=== PATIENT | female | born 1950 | race Caucasian/White ===

== ENCOUNTER 2020-05-27 08:08 | Outpatient (CLI) | payer MEDICARE, OTHER, SELFPAY ==
--- NOTE | 2020-05-27 08:15 | XRR_ITS ---
PROCEDURE INFORMATION: Exam: XR Abdomen, 1 View Exam date and time: 05/27/2020 8:25 AM Age: 70 years old Clinical indication: Condition or disease; Kidney or ureter condition; Calculus (stone) in kidney; Prior surgery; Surgery type: Ileostomy; Additional info: Renal stone TECHNIQUE: Imaging protocol: XR of the abdomen. Views: Frontal supine view of the abdomen. 1 View. COMPARISON: CR XR KUB [id number] 05/27/2019 8:28 AM FINDINGS: Gastrointestinal tract: No significant bowel dilatation. Intraperitoneal space: Punctate pelvic calcifications, presumably vascular in etiology. If urolithiasis is of clinical concern, CT may be of benefit for further evaluation. Organs: Bowel gas partially obscures the renal fossa. Bones/joints: Femoral head sclerosis, consistent with avascular necrosis. Degenerative change. XR/XR KUB [id number] IMPRESSION: Punctate pelvic calcifications, presumably vascular in etiology. If urolithiasis is of clinical concern, CT may be of benefit for further evaluation.
== END 2020-05-27 08:09 | disposition home or self-care (01) ==
PROVIDERS: PCP Registered Nurse; Visit Provider Urology
DX: N20.0 Calculus of kidney (principal)
CPT/HCPCS: 74018; 81003

== ENCOUNTER 2021-05-27 08:22 | Outpatient (CLI) | payer MEDICARE, OTHER, SELFPAY ==
--- NOTE | 2021-05-27 08:15 | XR_ITS ---
WS: [id number] ABDOMEN: SUPINE FILM HISTORY: renal calculus COMPARISON: 05/27/2020 Normal bowel gas pattern. No soft tissue abnormalities. There are several small calcifications within the pelvis which are probably phleboliths. No change in position. Right kidney: No renal or ureteral stone identified. Left kidney: Possible 4 mm calcification overlying the lower pole LEFT kidney. There is an additional calcification in the RIGHT upper quadrant which is probably related to a gallstone as seen on a prio r CT from 2017. XR/XR KUB [id number] IMPRESSION: 1. Possible 4 mm calcification overlying lower pole LEFT kidney. Vaguely visua lized. 2. Well-circumscribed calcification RIGHT upper abdomen is probably a gallston e.
== END 2021-05-27 08:23 | disposition home or self-care (01) ==
LOC: RAD 08:26
PROVIDERS: PCP Registered Nurse; Visit Provider Urology
DX: N20.0 Calculus of kidney (principal)
CPT/HCPCS: 74018

== ENCOUNTER 2021-11-04 09:13 | Outpatient (CLI) | payer MEDICARE, OTHER, SELFPAY ==
--- NOTE | 2021-11-04 09:15 | XR_ITS ---
WS: [id number] KUB, AP view, 11/04/2021 Clinical Data: RENAL CALCULUS, LEFT Comparison: KUB, 05/27/2021. Findings: No abnormal intraabdominal masses or calcifications are seen. There is no dilatated small bowel or ev idence of obstruction. 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 The abdomen is gasless. XR/XR KUB [id number] Impression: Negative KUB.
== END 2021-11-04 09:14 | disposition home or self-care (01) ==
LOC: RAD 09:16
PROVIDERS: PCP Registered Nurse; Visit Provider Urology
DX: N20.0 Calculus of kidney (principal); R10.9 Unspecified abdominal pain
CPT/HCPCS: 74018; 81003; 99213

== ENCOUNTER 2021-11-12 10:43 | Outpatient (CLI) | payer MEDICARE, OTHER, SELFPAY ==
--- NOTE | 2021-11-12 11:00 | CT_ITS ---
WS: [id number] Exam: CT abdomen pelvis wo con [id number] Date/Time of Exam: 11/12/2021 10:55 AM Reason For Exam: HEMATURIA DLP: 1029.[address] scans at [facility] use at least one of these dose optimization techniques: automated e xposure control; mA and/or kV adjustment per patient size (includes targeted exams where dose is matc hed to clinical indication); or iterative reconstruction. Comparison 02/09/2015. Lower lung zones are clear. Chronic changes noted. There are 2 small stable appearing cysts in the ri ght lobe of the liver. The largest is about 1.5 cm at greatest diameter. There are stones in the gall bladder. No sign of acute cholecystitis. The stomach, spleen and pancreas appear normal. Stable appea ring bilobulated nodule in the left adrenal gland measures about 2.8 cm at greatest diameter. Subcent imeter nodule in the right adrenal gland. 3 mm nonobstructing stone in the left kidney. The right kid jeff is unremarkable. No sign of renal obstruction. The abdominal aorta is normal in caliber. No lymph adenopathy. No free air. Small bowel loops are not dilated. Surgical absence of the colon. Right lowe r quadrant ileostomy noted. There is peristomal herniation of the omentum. No mass or adenopathy in t he pelvis. Intact urinary bladder. Hysterectomy. Tiny left paracentral ventral hernia containing fat. Tiny fat containing umbilical hernia. No destructive bone lesions. CT/CT abdomen pelvis con [id number] IMPRESSION: 1. 3 mm nonobstructing stone in the left kidney. No renal obstruction. 2. Cholelithiasis no sign of acute cholecystitis. 3. Small hepatic cysts. Bilateral adrenal nodules which are stable. 4. Status post colectomy. Additional minor nonacute findings. 5. No sign of abdominal mass, lymphadenopathy or acute process.
== END 2021-11-12 10:44 | disposition home or self-care (01) ==
PROVIDERS: PCP Registered Nurse; Visit Provider Urology
DX: R31.9 Hematuria, unspecified (principal); N20.0 Calculus of kidney; K80.20 Calculus of gallbladder without cholecystitis without obstruction; K76.89 Other specified diseases of liver; Z90.49 Acquired absence of other specified parts of digestive tract
CPT/HCPCS: 74176; 81003; 99213

== ENCOUNTER 2021-12-27 07:02 | Outpatient (CLI) | payer MEDICARE, OTHER, SELFPAY ==
--- NOTE | 2021-12-27 07:21 | MR_ITS ---
WS: [email or web address] INDICATION: Abdominal and pelvic pain. TECHNIQUE: Coronal T1 STIR axial T2 fat sat axial T1 and sagittal T2 fat sat FINDINGS: Partially visualized colectomy. RIGHT lower quadrant ileostomy with peristomal herniation i s unchanged since recent CT. No pelvic lymphadenopathy. No inguinal lymphadenopathy. Bladder appears normal. Prior hysterectomy. Normal bone marrow signal in the pelvis and sacrum. No insufficiency frac tures. No evidence of soft tissue mass or lesion. Serpiginous signal abnormality with edema involving the femoral heads bilaterally compatible with emy scular necrosis. Recommend correlation for bilateral hip pain. This is unchanged from the recent CT a nd CT 2017 MR/MR pelvis wo con* [id number] IMPRESSION: 1. Avascular necrosis bilateral femoral heads with mild edema LEFT greater leandra n RIGHT. No significant subchondral collapse. Recommend correlation for bilater al hip pain. This appears similar to 2017 CT abdomen pelvis. 2. Otherwise normal bone marrow signal in the pelvis and sacrum. 3. No pelvic lymphadenopathy. 4. Prior hysterectomy. 5. RIGHT lower quadrant ileostomy with partially visualized colectomy. 6. No other significant findings.
--- NOTE | 2021-12-27 07:21 | MR_ITS ---
WS: [email or web address] INDICATION: Abdominal and pelvic pain TECHNIQUE: MRI of the abdomen without gadolinium enhancement. Axial T1 fat sat coronal 3-D T1, axial 3-D fat sat, coronal T1 breath hold, axial T1 breath-hold, coronal T2, and attaches imaging, axial T2 fat sat, axial single shot FSE, coronal single shot. FINDINGS: Simple cysts in the right lobe of the liver are unchanged. The largest measures 2.0cm. Chol elithiasis. No gallbladder wall thickening or pericholecystic fluid. Normal pancreas. Normal common b ile duct. Pancreatic duct is normal. Bilateral adrenal nodules with signal characteristics compatible with adrenal adenomas largest LEFT adrenal gland measuring 2.0 cm. No hydronephrosis in either kidney. Normal caliber upper abdominal aorta. No upper abdominal lymphade nopathy visualized. RIGHT lower quadrant ileostomy. Prior colectomy. MR/MR abdomen wo con [id number] IMPRESSION: 1. Cholelithiasis. No evidence of acute cholecystitis. 2. Normal common bile duct. 3. Incidental small hepatic cysts. 4. Small bilateral adrenal adenoma nodules compatible with adenomas. 5. Prior postoperative changes colectomy.
== END 2021-12-27 07:03 | disposition home or self-care (01) ==
LOC: RAD 07:03
PROVIDERS: PCP Registered Nurse; Visit Provider Nurse Practitioner Family
DX: K80.20 Calculus of gallbladder without cholecystitis without obstruction (principal); K76.89 Other specified diseases of liver; D35.02 Benign neoplasm of left adrenal gland; D35.01 Benign neoplasm of right adrenal gland; R10.9 Unspecified abdominal pain; R10.2 Pelvic and perineal pain; Z93.2 Ileostomy status; Z90.710 Acquired absence of both cervix and uterus
CPT/HCPCS: 72195; 74181

== ENCOUNTER 2022-01-17 08:35 | Outpatient (CLI) | payer MEDICARE, OTHER, SELFPAY ==
--- NOTE | 2022-01-17 08:43 | MM_ITS ---
WS: [id number] SCREENING DIGITAL BREAST TOMOSYNTHESIS MAMMOGRAM WITH CAD HISTORY: SCREENING COMPARISON: 01/13/2021 and 01/10/2020 Bilateral CC and MLO with tomosynthesis views submitted. Synthetic mammography reviewed. Computer aid ed detection analyzed. Breast composition: There are scattered areas of fibroglandular density. No suspicious masses, microc alcifications or architectural distortion. Benign calcifications within each breast. MM/[place] [id number] IMPRESSION: BI-RADS: 2-Benign FOLLOW UP: 1 Year Follow-up
== END 2022-01-17 08:36 | disposition home or self-care (01) ==
LOC: RAD 08:36
PROVIDERS: PCP Registered Nurse; Visit Provider Registered Nurse
DX: Z12.31 Encounter for screening mammogram for malignant neoplasm of breast (principal)
CPT/HCPCS: 77063; 77067

== ENCOUNTER → 2022-04-29 11:08 | Outpatient (BNVA) | payer MEDICARE, OTHER, SELFPAY | PROVIDERS: PCP Registered Nurse; Visit Provider Internal Medicine Cardiovascular Disease | DX: I12.9 Hypertensive chronic kidney disease with stage 1 through stage 4 chronic kidney disease, or unspecified chronic kidney disease (principal); N18.9 Chronic kidney disease, unspecified; R00.2 Palpitations; E78.49 Other hyperlipidemia; I45.10 Unspecified right bundle-branch block | CPT/HCPCS: 99214 ==

== ENCOUNTER 2022-05-26 08:26 | Outpatient (CLI) | payer MEDICARE, OTHER, SELFPAY ==
--- NOTE | 2022-05-26 08:49 | XR_ITS ---
WS: [email or web address] EXAMINATION: XR KUB [id number] REASON FOR EXAM: Renal Calculus COMPARISON: 11/04/2021 ORDER DATE: 05/26/2022 8:50 AM FINDINGS: There is a nonspecific colonic gas pattern with scattered fecal content and gas. There is no sign of significant small bowel dilation. There is a 1 cm eggshell calcification in the right upper quadrant unchanged from prior at which time it was outside the renal outline, possible gallstone or digna ranjan cification. Numerous small calcifications are scattered about the pelvic cavity most of which have ch aracteristics of phleboliths with some too small to characterize. Osteoarthritis in each hip demonstr ates slightly greater on the left. XR/XR KUB [id number] IMPRESSION: No acute change and no interval change previous
== END 2022-05-26 08:27 | disposition home or self-care (01) ==
LOC: RAD 08:31
PROVIDERS: PCP Registered Nurse; Visit Provider Urology
DX: N20.0 Calculus of kidney (principal); N39.46 Mixed incontinence
CPT/HCPCS: 51798; 74018; 99213

== ENCOUNTER 2022-12-09 13:31 | Emergency (ER) | payer MEDICARE, OTHER, SELFPAY ==
[2022-12-09 13:44] VITALS: BP 143/89; PULSE 103; RESP 18; TEMP 36.6; O2SAT 98; BMI 27.6
--- NOTE | 2022-12-09 13:54 | XRR_ITS ---
PROCEDURE INFORMATION: Exam: XR Right Shoulder Exam date and time: 12/09/2022 2:14 PM Age: 72 years old Clinical indication: Pain; Shoulder; Right; Additional info: Fall with pain TECHNIQUE: Imaging protocol: Radiologic exam of the right shoulder. Views: 2 or more views. COMPARISON: CR XR chest 1V [id number] 08/01/2016 9:34 AM FINDINGS: Bones/joints: No acute fracture or dislocation is seen. Shoulder alignment is normal. Bones appear osteopenic. There are mild degenerative changes the acromioclavicular joint. No findings calcific tendinitis. Soft tissues: Normal. XR/XR shoulder RT min 2V* [id number] IMPRESSION: No acute fracture dislocation.
--- NOTE | 2022-12-09 13:54 | XRR_ITS ---
PROCEDURE INFORMATION: Exam: XR Right Knee Exam date and time: 12/09/2022 2:14 PM Age: 72 years old Clinical indication: Pain; Knee; Right; Additional info: Fall with pain TECHNIQUE: Imaging protocol: Radiologic exam of the right knee. Views: 3 views. COMPARISON: No relevant prior studies available. FINDINGS: Bones/joints: No acute fracture or dislocation is seen. There is a fairly well-defined approximally 7 x 3 cm sclerotic appearing intramedullary lesion in the distal femoral diaphysis which has a nonaggressive appearance. Primary considerations would be enchondroma versus medullary bone infarct. No knee effusion. Soft tissues: Normal. XR/XR knee RT 3V* [id number] IMPRESSION: 1. No acute fracture or dislocation. 2. 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 Metastatic disease would have be considered, if there is a known primary neoplasm.
--- NOTE | 2022-12-09 13:54 | XRR_ITS ---
PROCEDURE INFORMATION: Exam: XR Left Forearm Exam date and time: 12/09/2022 2:14 PM Age: 72 years old Clinical indication: Pain; Lower or forearm; Left; Additional info: Fall with pain TECHNIQUE: Imaging protocol: Radiologic exam of the left forearm. Views: 2 views. COMPARISON: No relevant prior studies available. FINDINGS: Bones/joints: An acute olecranon process fracture is better seen elbow radiographs. The distal ulna and radius are intact. No acute fracture is seen at the wrist. Soft tissues: Soft tissue swelling overlies the fracture. XR/XR forearm LT 2V [id number] IMPRESSION: Acute olecranon process fracture is better seen elbow radiographs.
--- NOTE | 2022-12-09 13:54 | XRR_ITS ---
PROCEDURE INFORMATION: Exam: XR Left Humerus Exam date and time: 12/09/2022 2:14 PM Age: 72 years old Clinical indication: Pain; Upper arm; Left; Additional info: Fall with pain TECHNIQUE: Imaging protocol: Radiologic exam of the left humerus. Views: 2 or more views. COMPARISON: CR XR chest 1V [id number] 08/01/2016 9:34 AM FINDINGS: Bones/joints: No acute humeral fracture is visualized. No dislocation. There is an incompletely visualized olecranon fracture which appears nondisplaced. No destructive osseous lesions identified. No periosteal reaction. Soft tissues: Normal. XR/[place] [id number] IMPRESSION: 1. No humeral fracture or dislocation identified. 2. Partially visualized olecranon fracture.
--- NOTE | 2022-12-09 13:55 | W.ED.FALL ---
Documented by User: Emily Bonner PA-C 12/09/22 16:19 HPI - Fall General: Chief Complaint: Fall Stated Complaint: fall, left arm, right knee pain Time Seen by Provider: 12/09/22 13:47 Source: patient Mode of arrival: ambulatory Limitations: no limitations History of Present Illness: 72-year-old female presents to the ER today for left shoulder, left elbow, left wrist, right shoulder, and right knee pain after a fall just prior to arrival. Patient reports she was walking down her hallway at home and the dog was laying in the middle of it. Patient reports it is dark and she did not see the dog and she tripped over the dog, falling with her arms out in front of her. She reports she hit her right knee and right side. Her daughter heard her fall and came running out. There was no loss of consciousness as when daughter came out of the room patient was awake and conscious. Patient reports severe pain in her left elbow and inability to move the left elbow, significant pain with movement of the left wrist, and left shoulder. Patient denies any prior injuries to these areas. She also reports pain with posterior flexion of the right shoulder. Patient also has right knee pain and reports it is worse with weightbearing. She has not take anything for pain at this time. Review of Systems General: Reports: 10 or more systems reviewed and unremarkable except in HPI and below PFSH ED PFSH: Medical History CKD (chronic kidney disease) Familial polyposis of colon Hematuria Hyperlipidemia due to dietary fat intake Mixed stress and urge urinary incontinence Osteoporosis Palpitation RBBB Renal calculus, left Surgical History S/P foot surgery S/P hysterectomy S/P ileostomy 12 surgeries S/P oophorectomy Family History Daughter , at 28 Colon cancer Sister , at 32 Colon cancer Mother , at age 46 Colon cancer Father , at age 59 Leukemia Son , Grandson at age 31 Overdose Other CAD (coronary artery disease) Cancer Familial polyposis Social History Smoking and tobacco status: never smoked Alcohol intake: never Adopted: No Caregiver/support person: No Lives independently: No Marital status: Current occupational status: retired Physical Exam Const: COMMON NORMALS: average body habitus, patient oriented x3, no limitations, healthy appearing, alert and well nourished Eye: COMMON NORMALS: conjunctivae normal CONJUNCTIVA: Yes conjunctivae normal Neck/C-Spine: COMMON NORMALS: full ROM and no lymphadenopathy Resp: COMMON NORMALS: normal respiratory effort and No retractions EFFORT & INSPECTION: Yes able to speak in complete sentences Cardio: COMMON NORMALS: regular rate, regular rhythm and No murmurs present (Cardio) RATE: regular rate RHYTHM: regular rhythm GI: COMMON NORMALS: Normal to inspection, nondistended, normoactive bowel sounds present, Soft to palpation and non-tender PALPATION: Yes Soft to palpation Extremity: NARRATIVE EXTREMITY EXAM: Patient has significant tenderness to palpation of the left shoulder, left elbow, and left wrist with pain with any movements of these areas. No obvious swelling or deformities are noted. Patient also has pain with posterior flexion of the right shoulder but is able to abduct the shoulder normally. Patient also has tenderness of the right patella with an abrasion noted however no obvious swelling or deformities. Neuro: COMMON NORMALS: patient oriented x3 SENSORIUM/ORIENTATION: Yes alert Psych: COMMON NORMALS: mental status grossly normal, Normal thought process present and cooperative THOUGHT PROCESS: Normal thought process present Skin: NARRATIVE SKIN EXAM: No obvious bruising noted however patient does have an abrasion to the right knee. Course ED course: Patient presents to the ER after a fall this morning. Patient tripped over her dog in the dark and landed on her outstretched arms forward. No loss of consciousness reported. We will get imaging at this time of several areas where patient is experiencing pain. Consultations: Consultation #1: Spoke with Dr. Gee regarding patient's fracture. She wants her in a posterior splint at 45 to 60 degrees and to follow-up next week. Time: 15:57 Vital Signs: Vital signs: Vital Signs Temperature 97.9 F 12/09/22 13:44 Pulse Rate 103 H 12/09/22 13:44 Respiratory Rate 18 12/09/22 13:44 Blood Pressure 143/89 12/09/22 13:44 Pulse Oximetry 98 12/09/22 13:44 Oxygen Delivery Me thod Room Air 12/09/22 13:44 MDM - Fall Medical Decision Making All imaging was negative other than the left elbow fracture. Patient does have an acute intra-articular olecranon fracture that is nondisplaced. I spoke with Dr. Gee who recommended patient be splinted at 45 to 90 degrees with a posterior arm splint. Follow-up next week at clinic with her. Patient will be sent home with pain medication and advised to rest and elevate the arm and apply ice to reduce swelling. Everything else however appeared normal. Patient does have a right knee abrasion. Recommended ice and elevation. Return to the ER with any new or worsening symptoms. Patient verbalized understanding and was in agreement with the treatment plan. Lab Data Radiology Impressions Forearm X-Ray 12/09/22 13:54 IMPRESSION: Acute olecranon process fracture is better seen elbow radiographs. Humerus X-Ray 12/09/22 13:54 IMPRESSION: 1. No humeral fracture or dislocation identified. 2. Partially visualized olecranon fracture. Knee X-Ray 12/09/22 13:54 IMPRESSION: 1. No acute fracture or dislocation. 2. 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 Metastatic disease would have be considered, if there is a known primary neoplasm. Shoulder X-Ray 12/09/22 13:54 IMPRESSION: No acute fracture dislocation. Elbow X-Ray 12/09/22 14:43 IMPRESSION: 1. Acute intra-articular olecranon fracture, nondisplaced. 2. Hemarthrosis. Critical Care Time Critical Care Time: Critical Care Time: No Discharge Plan Discharge Patient Disposition: Home Clinical Impression: Fracture of olecranon process of left ulna Qualifiers: Encounter type: initial encounter Fracture type: closed Qualified Code(s): S52.022A - Displaced fracture of olecranon process without intraarticular extension of left ulna, initial encounter for closed fracture Condition: Stable Prescriptions: New hydrocodone-acetaminophen 5-325 mg tablet 1 tab PO Q6H PRN (Reason: pain) Qty: 20 0RF No Action levothyroxine 25 mcg capsule 25 mcg PO DAILY ondansetron HCl [Zofran] 4 mg tablet 4 mg PO Q8H PRN sertraline [Zoloft] 50 mg tablet 50 mg PO DAILY vitamin B complex [B Complex-Vitamin B12] Tablet 1 tab PO DAILY alprazolam [Xanax] 0.5 mg tablet 0.5 mg PO DAILY cholecalciferol (vitamin D3) 50 mcg (2,000 unit) capsule 2,000 unit PO DAILY guaifenesin [Mucinex] 600 mg tablet extended release 12hr 600 mg PO Q12H PRN simvastatin 20 mg tablet 20 mg PO DAILY fluticasone propionate [Flonase Allergy Relief] 50 mcg/actuation spray,suspension 1 spray INTRANASAL DAILY PRN Rx Instructions: administer into each nostril famotidine 20 mg tablet 20 mg PO DAILY ketoconazole 2 % shampoo 1 applic topical .2x weekly Qty: 120 6RF Rx Instructions: Lather into scalp 2-3 times weekly. Allow to sit on scalp for 5 minutes before rinsing. biotin 10,000 mcg capsule PO oxybutynin chloride 5 mg tablet extended release 24 hr See Rx Instructions .ROUTE .COMPLEX Qty: 90 3RF Dose Instruction: TAKE 1 TABLET BY MOUTH DAILY. Rx Instructions: TAKE 1 TABLET BY MOUTH DAILY. Discharge Orders: Discharge ED (Routine); Ordered 12/09/22 Ordered By: Emily Bonner Referrals: Nanci Gee MD [Physician] - (Olecranon fracture) Heike Gutierrez FNP [Primary Care Provider] - Discharge Diet: Usual diet Discharge Activity: Limit activity as instructed Patient Instructions: Opioid Safety, Pain Management Activity Restrictions/Additional Instructions: Pain medications as prescribed. Splint care as discussed. Follow-up with Dr. Gee next week. Keep arm elevated and ice on it to decrease swelling. Return to the ER with any new or worsening symptoms. Coding Level of Care Code ED Lithopress Operator for Chg Fwd Documented by User: Chip Almodovar DO 12/09/22 16:54 HPI - Fall General: Chief Complaint: Fall Stated Complaint: fall, left arm, right knee pain Time Seen by Provider: 12/09/22 13:47 PFSH ED PFSH: Medical History CKD (chronic kidney disease) Familial polyposis of colon Hematuria Hyperlipidemia due to dietary fat intake Mixed stress and urge urinary incontinence Osteoporosis Palpitation RBBB Renal calculus, left Surgical History S/P foot surgery S/P hysterectomy S/P ileostomy 12 surgeries S/P oophorectomy Family History Daughter , at 28 Colon cancer Sister , at 32 Colon cancer Mother , at age 46 Colon cancer Father , at age 59 Leukemia Son , Grandson at age 31 Overdose Other CAD (coronary artery disease) Cancer Familial polyposis Social History Smoking and tobacco status: never smoked Alcohol intake: never Adopted: No Caregiver/support person: No Lives independently: No Marital status: Current occupational status: retired Course Vital Signs: Vital signs: Vital Signs Temperature 97.9 F 12/09/22 13:44 Pulse Rate 103 H 12/09/22 13:44 Respiratory Rate 18 12/09/22 13:44 Blood Pressure 143/89 12/09/22 13:44 Pulse Oximetry 98 12/09/22 13:44 Oxygen Delivery Me thod Room Air 12/09/22 13:44 MDM - Fall Medical Decision Making All imaging was negative other than the left elbow fracture. Patient does have an acute intra-articular olecranon fracture that is nondisplaced. I spoke with Dr. Gee who recommended patient be splinted at 45 to 90 degrees with a posterior arm splint. Follow-up next week at clinic with her. Patient will be sent home with pain medication and advised to rest and elevate the arm and apply ice to reduce swelling. Everything else however appeared normal. Patient does have a right knee abrasion. Recommended ice and elevation. Return to the ER with any new or worsening symptoms. Patient verbalized understanding and was in agreement with the treatment plan.' Chart reviewed and patient discussed with midlevel. Agree with assessment and plan. Lab Data Radiology Impressions Forearm X-Ray 12/09/22 13:54 IMPRESSION: Acute olecranon process fracture is better seen elbow radiographs. Humerus X-Ray 12/09/22 13:54 IMPRESSION: 1. No humeral fracture or dislocation identified. 2. Partially visualized olecranon fracture. Knee X-Ray 12/09/22 13:54 IMPRESSION: 1. No acute fracture or dislocation. 2. 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 Metastatic disease would have be considered, if there is a known primary neoplasm. Shoulder X-Ray 12/09/22 13:54 IMPRESSION: No acute fracture dislocation. Elbow X-Ray 12/09/22 14:43 IMPRESSION: 1. Acute intra-articular olecranon fracture, nondisplaced. 2. Hemarthrosis. Discharge Plan Discharge Patient Disposition: Home Clinical Impression: Fracture of olecranon process of left ulna Qualifiers: Encounter type: initial encounter Fracture type: closed Qualified Code(s): S52.022A - Displaced fracture of olecranon process without intraarticular extension of left ulna, initial encounter for closed fracture Condition: Stable Prescriptions: New hydrocodone-acetaminophen 5-325 mg tablet 1 tab PO Q6H PRN (Reason: pain) Qty: 20 0RF No Action levothyroxine 25 mcg capsule 25 mcg PO DAILY ondansetron HCl [Zofran] 4 mg tablet 4 mg PO Q8H PRN sertraline [Zoloft] 50 mg tablet 50 mg PO DAILY vitamin B complex [B Complex-Vitamin B12] Tablet 1 tab PO DAILY alprazolam [Xanax] 0.5 mg tablet 0.5 mg PO DAILY cholecalciferol (vitamin D3) 50 mcg (2,000 unit) capsule 2,000 unit PO DAILY guaifenesin [Mucinex] 600 mg tablet extended release 12hr 600 mg PO Q12H PRN simvastatin 20 mg tablet 20 mg PO DAILY fluticasone propionate [Flonase Allergy Relief] 50 mcg/actuation spray,suspension 1 spray INTRANASAL DAILY PRN Rx Instructions: administer into each nostril famotidine 20 mg tablet 20 mg PO DAILY ketoconazole 2 % shampoo 1 applic topical .2x weekly Qty: 120 6RF Rx Instructions: Lather into scalp 2-3 times weekly. Allow to sit on scalp for 5 minutes before rinsing. biotin 10,000 mcg capsule PO oxybutynin chloride 5 mg tablet extended release 24 hr See Rx Instructions .ROUTE .COMPLEX Qty: 90 3RF Dose Instruction: TAKE 1 TABLET BY MOUTH DAILY. Rx Instructions: TAKE 1 TABLET BY MOUTH DAILY. Discharge Orders: Discharge ED (Routine); Ordered 12/09/22 Ordered By: Emily Bonner Referrals: Nanci Gee MD [Physician] - (Olecranon fracture) Heike Gutierrez FNP [Primary Care Provider] - Discharge Diet: Usual diet Discharge Activity: Limit activity as instructed Patient Instructions: Opioid Safety, Pain Management Activity Restrictions/Additional Instructions: Pain medications as prescribed. Splint care as discussed. Follow-up with Dr. Gee next week. Keep arm elevated and ice on it to decrease swelling. Return to the ER with any new or worsening symptoms. Coding Level of Care Code ED Lithopress Operator for Alena Parks
--- NOTE | 2022-12-09 14:43 | XRR_ITS ---
PROCEDURE INFORMATION: Exam: XR Left Elbow Exam date and time: 12/09/2022 3:08 PM Age: 72 years old Clinical indication: Pain; Elbow; Left; Additional info: Fracture, better angles now that we know where the injury is TECHNIQUE: Imaging protocol: Radiologic exam of the left elbow. Views: 3 or more views. COMPARISON: CR ( EX, ) 12/09/2022 2:14 PM FINDINGS: Bones/joints: There is an acute intra-articular fracture of the olecranon, essentially nondisplaced. The radial head appears preserved. The distal humerus appears preserved. Elevation of the anterior fat pad of the elbow, indicating hemarthrosis. Soft tissues: Periarticular soft tissue swelling, most prominent at the posterior aspect of the olecranon. XR/XR elbow LT min 3V* [id number] IMPRESSION: 1. Acute intra-articular olecranon fracture, nondisplaced. 2. Hemarthrosis.
[2022-12-09] MEDS: HYDROcodone-acetaminophen 5-325 mg Tablet 1 TAB PO (15:37)
--- NOTE | 2022-12-10 10:47 | DCPLANNER ---
Addendum entered by Rin Fajardo 12/20/22 11:16: Patient had a follow up appointment scheduled with ortho - patient did attend appointment. Original Note: key account manager had message to schedule a follow up appointment for patient with ortho. key account manager sent patients information to the front office staff at ortho. Patients information will be printed and reviewed. Clinic will call patient with appointment information.
== END 2022-12-09 16:46 | disposition home or self-care (01) ==
PROVIDERS: Emergency Provider Physician Assistant; PCP Nurse Practitioner
DX: S52.025A Nondisplaced fracture of olecranon process without intraarticular extension of left ulna, initial encounter for closed fracture (principal); S80.211A Abrasion, right knee, initial encounter; W01.0XXA Fall on same level from slipping, tripping and stumbling without subsequent striking against object, initial encounter; Y93.01 Activity, walking, marching and hiking; Y92.008 Other place in unspecified non-institutional (private) residence as the place of occurrence of the external cause
CPT/HCPCS: 73030; 73060; 73080; 73090; 73562; 99283

== ENCOUNTER 2022-12-14 12:05 | Outpatient (CLI) | payer MEDICARE, OTHER, SELFPAY | END 2022-12-14 12:06 | disposition home or self-care (01) | LOC: SPT 12:06 | PROVIDERS: PCP Nurse Practitioner; Visit Provider Specialist | DX: S52.022A Displaced fracture of olecranon process without intraarticular extension of left ulna, initial encounter for closed fracture (principal); W01.0XXA Fall on same level from slipping, tripping and stumbling without subsequent striking against object, initial encounter | CPT/HCPCS: 25530; 97760; 99204; L3761 ==

== ENCOUNTER → 2022-12-22 08:06 | Outpatient (BNVA) | payer MEDICARE, OTHER, SELFPAY | PROVIDERS: PCP Nurse Practitioner; Visit Provider Nurse Practitioner Family | DX: S52.022A Displaced fracture of olecranon process without intraarticular extension of left ulna, initial encounter for closed fracture (principal); W01.0XXA Fall on same level from slipping, tripping and stumbling without subsequent striking against object, initial encounter | CPT/HCPCS: 73080; 99213 ==

== ENCOUNTER → 2022-12-28 15:29 | Outpatient (BNVA) | payer MEDICARE, OTHER, SELFPAY | PROVIDERS: PCP Nurse Practitioner; Visit Provider Specialist | DX: S52.022D Displaced fracture of olecranon process without intraarticular extension of left ulna, subsequent encounter for closed fracture with routine healing (principal); W01.0XXD Fall on same level from slipping, tripping and stumbling without subsequent striking against object, subsequent encounter | CPT/HCPCS: 73080; 99024 ==

== ENCOUNTER → 2023-01-05 15:17 | Outpatient (BNVA) | payer MEDICARE, OTHER, SELFPAY | PROVIDERS: PCP Nurse Practitioner; Visit Provider Internal Medicine Cardiovascular Disease | DX: I44.4 Left anterior fascicular block (principal); R07.9 Chest pain, unspecified; R00.2 Palpitations; I12.9 Hypertensive chronic kidney disease with stage 1 through stage 4 chronic kidney disease, or unspecified chronic kidney disease; E78.49 Other hyperlipidemia; N18.9 Chronic kidney disease, unspecified; I45.2 Bifascicular block | CPT/HCPCS: 93005; 99214 ==

== ENCOUNTER → 2023-01-16 12:50 | Outpatient (BNVA) | payer MEDICARE, OTHER, SELFPAY | PROVIDERS: PCP Nurse Practitioner; Visit Provider Nurse Practitioner Family | DX: S52.022D Displaced fracture of olecranon process without intraarticular extension of left ulna, subsequent encounter for closed fracture with routine healing; X58.XXXD Exposure to other specified factors, subsequent encounter | CPT/HCPCS: 73080; 99213 ==

== ENCOUNTER → 2023-02-01 08:45 | Outpatient (BNVA) | payer MEDICARE, OTHER, SELFPAY | PROVIDERS: PCP Nurse Practitioner; Visit Provider Specialist | DX: S52.022D Displaced fracture of olecranon process without intraarticular extension of left ulna, subsequent encounter for closed fracture with routine healing; W01.0XXD Fall on same level from slipping, tripping and stumbling without subsequent striking against object, subsequent encounter; G90.522 Complex regional pain syndrome I of left lower limb | CPT/HCPCS: 73080; 99213 ==

== ENCOUNTER → 2023-03-27 14:54 | Outpatient (BNVA) | payer MEDICARE, OTHER, SELFPAY | PROVIDERS: PCP Nurse Practitioner; Visit Provider Nurse Practitioner Family | DX: L82.1 Other seborrheic keratosis (principal); D22.5 Melanocytic nevi of trunk; L82.0 Inflamed seborrheic keratosis; L57.0 Actinic keratosis | CPT/HCPCS: 17000; 17110; 99213 ==

== ENCOUNTER 2023-04-20 15:55 | Outpatient (CLI) | payer MEDICARE, OTHER, SELFPAY ==
--- NOTE | 2023-04-20 | MR_ITS ---
WS: [id number] MRI CERVICAL SPINE NONCONTRAST HISTORY: LT HAND WEAKNESS COMPARISON: None available. Technique: Multiplanar, multisequence noncontrast imaging of the cervical spine. Mild straightening of the normal cervical lordosis. Mild curvature cervical spine. Signal within the cervical cord is normal. Visualized posterior fossa is unremarkable. Craniocervical junction, C1 and C2 relationship, odontoid process and soft tissues are normal. C2-C3: Mild osteophytic ridging. No stenosis. C3-C4: Mild annular disc bulging. Small bilateral foraminal osteophytes and mild foraminal stenosis. C4-C5: Small vertebral osteophytes. No stenosis. C5-C6: Mild annular disc bulging with mild osteophytic ridging and facet arthritis. Mild central and bilateral foraminal stenosis. C6-C7: Mild annular disc bulging with a shallow LEFT paracentral disc protrusion. Very mild central c anal narrowing and foraminal narrowing. Mild facet arthritis. C7-T1: Normal. There is increased soft tissue at the medial lung apices which may be due to a pulmonary fibrosis if there is a history of smoking and fibrotic changes. No prior studies for comparison. Suggest chest CT with IV contrast. IMPRESSION: 1. No high-grade central or foraminal stenosis. 2. Mild central and bilateral foraminal stenosis at C3-4 and C5-6. 3. Shallow LEFT paracentral disc protrusion at C6-7 with mild central and foraminal narrowing. 4. Increased soft tissue at the lung apices. Medial related to scarring and fibrosis. Consider follow -up chest CT with IV contrast for better evaluation.
== END 2023-04-20 15:56 | disposition home or self-care (01) ==
PROVIDERS: PCP Nurse Practitioner; Visit Provider Family Medicine
DX: M48.02 Spinal stenosis, cervical region (principal); M50.223 Other cervical disc displacement at C6-C7 level; R29.898 Other symptoms and signs involving the musculoskeletal system; M54.2 Cervicalgia; G89.29 Other chronic pain
CPT/HCPCS: 72141

== ENCOUNTER 2023-05-18 08:45 | Outpatient (CLI) | payer MEDICARE, OTHER, SELFPAY ==
--- NOTE | 2023-05-18 08:51 | CT_ITS ---
WS: [id number] CT chest w con* [id number] HISTORY: LUNG NODULE/ABNORMAL FINDINGS ON IMAGING TECHNIQUE: Axial imaging performed through the thorax. Coronal and sagittal reformats are submitted. All CT scans at [facility] use at least one of these dose optimization techniques: automated exposure control; mA and/or kV adjustment per patient size (includes targeted exams where dose is mat ched to clinical indication); or iterative reconstruction. CONTRAST: Omnipaque 350; 100 mL IV. DLP: 473.35 mGy.cm COMPARISON: MRI C-spine 04/20/2023, CT abdomen 11/12/2021 and 02/09/2017 Lungs and central airway: Lungs are well aerated. Previously described increased soft tissue at the l elizabeth apices corresponds to increased pleural fat. There is no mass. Pleural fat is most significant al dodie the medial upper lung [place]. This is benign in appearance. Pleura: Normal. No pleural effusion. Heart and pericardium: Normal size heart with no pericardial effusion. Mediastinum and blake: No mediastinum or hilar adenopathy. Vessels: Normal size aortic and pulmonary artery. No coronary artery calcifications. Chest wall and lower neck: Subcentimeter bilateral thyroid nodules. Upper abdomen: Hepatic cysts. Moderate-sized hiatal hernia. Lobulated mass LEFT adrenal gland 1.6 x 2 .2 cm noted to be in benign adenoma on 02/09/2017. Moderate cortical thinning upper pole of each kidne y. Cholelithiasis. Osseous structures: No destructive process. IMPRESSION: 1. Area of increased soft tissue noted on a recent MRI corresponds to prominent pleural fat. No mass or suspicious finding. 2. Moderate size hiatal hernia. 3. Hepatic cysts and long-term stability LEFT adrenal mass consistent with an adenoma.
[2023-05-18 09:23] LABS: Blood Urea Nitrogen 22 mg/dL (8-23)
[2023-05-18] MEDS: iohexol 350 mg/mL 500 mL Btl (per mL) IV (09:33)
== END 2023-05-18 08:46 | disposition home or self-care (01) ==
LOC: RAD 08:45
PROVIDERS: Radiology Diagnostic Radiology; PCP Nurse Practitioner; Visit Provider Family Medicine
DX: R91.1 Solitary pulmonary nodule (principal); R93.89 Abnormal findings on diagnostic imaging of other specified body structures; K44.9 Diaphragmatic hernia without obstruction or gangrene; K76.89 Other specified diseases of liver; D35.02 Benign neoplasm of left adrenal gland; K80.20 Calculus of gallbladder without cholecystitis without obstruction; E04.1 Nontoxic single thyroid nodule
CPT/HCPCS: 71260; 82565; 84520; Q9967

== ENCOUNTER → 2023-07-31 13:20 | Outpatient (BNVA) | payer MEDICARE, OTHER, SELFPAY | PROVIDERS: PCP Nurse Practitioner; Visit Provider Internal Medicine Cardiovascular Disease | DX: R00.2 Palpitations (principal); E78.49 Other hyperlipidemia; I45.10 Unspecified right bundle-branch block; N18.9 Chronic kidney disease, unspecified | CPT/HCPCS: 99213 ==

== ENCOUNTER 2023-10-11 08:54 | Outpatient (CLI) | payer MEDICARE, OTHER, SELFPAY ==
--- NOTE | 2023-10-11 09:00 | USCV_ITS ---
Carmel Vega Age: 73 Gender: F : 1950 Exam Date: 10/11/2023 08:57 Ordering Phys: Leodan Darling MD ([email or web address]) Technologist: R [place] [facility] [place]: stenosis ct/pd Risk Factors: Previous Vascular Surgery: Right Brachial BP: / Left Brachial BP: / Right Left Velocity (cm/s) Spectral Plaque Velocity (cm/s) Spectral Plaque Syst/Diast Broadening Syst/Diast Broadening 93.50/ 35.00 Prox CCA 95.30 / 34.90 82.20/ 31.30 Mid CCA 116.10/ 41.00 67.80/ 19.40 Distal CCA 92.50 / 24.80 38.20/ 15.60 Prox ICA 65.80 / 31.10 72.40/ 25.40 Mid ICA 49.80 / 24.00 89.70/ 41.10 Distal ICA 46.70 / 21.90 70.70 ECA 44.20 1.30 ICA/CCA 0.70 Antegrade Vertebral Antegrade 32.10/ 12.50 cm/s 46.20/ 14.10 cm/s Bi Subclavian Bi FINDINGS Comparison: none available. No significant elevation of systolic or diastolic velocities. Waveforms are normal. Left cervical carotid is tortuous. Mild carotid atherosclerosis. CONCLUSIONS Bilateral ICA stenosis less than 50%. Minimal carotid atherosclerosis. Dr. Sarah Carter DO (Electronically Signed) Final Date: 11 October 2023 10:00 S
== END 2023-10-11 08:55 | disposition home or self-care (01) ==
LOC: RAD 08:54
PROVIDERS: PCP Nurse Practitioner Family; Visit Provider Internal Medicine Cardiovascular Disease
DX: R55 Syncope and collapse (principal); I65.23 Occlusion and stenosis of bilateral carotid arteries
CPT/HCPCS: 93880

== ENCOUNTER 2023-11-08 10:36 | Outpatient (CLI) | payer MEDICARE, OTHER, SELFPAY ==
--- NOTE | 2023-11-08 10:39 | CT_ITS ---
WS: [id number] CT ABDOMEN AND PELVIS NONCONTRAST HISTORY: RENAL MASS, NEPHROLITHIASIS TECHNIQUE: Imaging performed through the abdomen and pelvis. Coronal and sagittal reformats are submi tted. All CT scans at [facility] use at least one of these dose optimization techniques: auto mated exposure control; mA and/or kV adjustment per patient size (includes targeted exams where dose is matched to clinical indication); or iterative reconstruction. DLP: 459.52 mGy COMPARISON: 11/12/2021 Lower thorax: Lung bases are clear. Visualized heart is normal. No hiatal hernia. Liver: Normal size liver. Reidentified is a subcapsular 1.4 cm mass along the anterior RIGHT lobe of the liver. Probably a small complex cyst but stable. No bile duct dilatation. Gallbladder: Cholelithiasis without acute cholecystitis. Pancreas: Normal size and attenuation. Normal pancreatic duct. No pancreatitis or mass. Spleen: Normal. Adrenal glands: Normal RIGHT adrenal gland. Long-term stability of a bilobed LEFT adrenal gland mass measuring 2.4 x 1.9 cm. Very similar in appearance since 02/09/2015. Right kidney: Normal size kidney with no mass or hydronephrosis. Left kidney: Mild perinephric stranding. Nonobstructing 4 mm calcification lower pole. No ureteral ob struction or dilatation. Aorta: Mild atherosclerosis abdominal aorta with no aneurysm. No free fluid, intraperitoneal air or significant lymphadenopathy. GI tract: Nondistended stomach. No small bowel obstruction. RIGHT lower quadrant ileostomy. Status po st colectomy. Prior appendectomy. Abdominal wall: Thinning of the abdominal muscles and rectus. Ventral abdominal wall hernia below the umbilicus. Pelvis: No free fluid or adenopathy. Prior hysterectomy. Negative urinary bladder. Muscles are atroph ied surrounding the pelvis. Osseous structures: Bilateral femoral head osteonecrosis without collapse. Similar to the prior study . CT/CT kidney stone [id number] IMPRESSION: 1. Status post colectomy. 2. RIGHT abdominal ileostomy site. 3. Cholelithiasis without acute cholecystitis. 4. Long-term stability LEFT adrenal mass. 5. Hepatic cyst. 6. No free fluid or adenopathy. 7. Prior appendectomy and hysterectomy. 8. No renal mass identified on this unenhanced CT evaluation. 9. Nonobstructing calcification lower pole LEFT kidney.
== END 2023-11-08 10:37 | disposition home or self-care (01) ==
LOC: RAD 10:37
PROVIDERS: PCP Nurse Practitioner Family; Visit Provider Internal Medicine Nephrology
DX: N28.89 Other specified disorders of kidney and ureter (principal); N20.0 Calculus of kidney; Z90.49 Acquired absence of other specified parts of digestive tract; Z93.2 Ileostomy status; K80.20 Calculus of gallbladder without cholecystitis without obstruction; D35.02 Benign neoplasm of left adrenal gland; K76.89 Other specified diseases of liver; Z90.710 Acquired absence of both cervix and uterus; M87.851 Other osteonecrosis, right femur; K43.9 Ventral hernia without obstruction or gangrene
CPT/HCPCS: 74176

== ENCOUNTER 2023-12-19 13:13 | Outpatient (CLI) | payer MEDICARE, OTHER, SELFPAY ==
--- NOTE | 2023-12-19 13:23 | USCV_ITS ---
Carmel Vega Age: 73 Gender: F : 1950 Exam Date: 12/19/2023 13:32 Ordering Phys: NOT ON FILE, DOCTOR XX Technologist: CT Exam Location: [facility] – [place] Indication: syncope BP: 130 / 85 HR: Rhythm: Sinus Technical Quality: Adequate MEASUREMENTS (Male / Female) Normal Values 2D ECHO LVOT Diameter 2.0 cm LV Ejection Fraction MOD 2C 75.4 % LV Ejection Fraction 2C AL 75.5 % LA Diameter 2.0 cm RA Systolic Volume 4C AL 11.0 ml RA Systolic Volume 4C MOD 10.9 ml LA Sys Volume AL 15.7 cm cubed LA Sys Volume Index AL 8.5 cm cubed/m squared Aorta at Sinotubular Diameter 2.3 cm IVC Diameter 1.8 cm M-MODE LA Ao Ratio MM 0.8 AV Cusp Separation MM 2.1 cm FINDINGS Left Ventricle Study is limited to two-dimensional and M-mode exam. No Doppler examination performed. Normal left ventricular size, systolic function and wall thickness, with no regional wall motion abnormalities. Left ventricular ejection fraction is estimated at 60 %. Right Ventricle Normal right ventricular size and systolic function. Right Atrium The right atrium is normal in size. Left Atrium The left atrium is normal in size. Mitral Valve Structurally normal mitral valve. Aortic Valve Structurally normal trileaflet aortic valve. Tricuspid Valve Structurally normal tricuspid valve. Pulmonic Valve Pulmonic valve not well visualized. Pericardium Normal pericardium without effusion. Aorta Normal ascending aorta dimension. IVC The inferior vena cava appears normal. CONCLUSIONS Study is limited to two-dimensional and M-mode exam. No Doppler examination performed. Normal left ventricular size, systolic function and wall thickness, with no regional wall motion abnormalities. Left ventricular ejection fraction is estimated at 60 %. No change from the previous study from August 2015 Dr. Leodan Darling MD (Electronically Signed) Final Date: 19 December 2023 16:24 S
== END 2023-12-19 13:14 | disposition home or self-care (01) ==
LOC: RAD 13:13
PROVIDERS: PCP Nurse Practitioner Family
DX: R55 Syncope and collapse (principal)
CPT/HCPCS: 93308

== ENCOUNTER 2024-01-23 16:10 | Emergency (ER) | payer MEDICARE, OTHER, SELFPAY ==
[2024-01-23 16:16] VITALS: BP 154/93; PULSE 76; RESP 18; TEMP 36.6; O2SAT 98
--- NOTE | 2024-01-23 16:24 | CTR_ITS ---
PROCEDURE INFORMATION: Exam: CT Head Without Contrast Exam date and time: 01/23/2024 4:36 PM Age: 73 years old Clinical indication: Injury or trauma; Fall; Laceration; Without residual foreign body; Head, generalized; Additional info: Head injury TECHNIQUE: Imaging protocol: Computed tomography of the head without contrast. Radiation optimization: All CT scans at this facility use at least one of these dose optimization techniques: automated exposure control; mA and/or kV adjustment per patient size (includes targeted exams where dose is matched to clinical indication); or iterative reconstruction. COMPARISON: MR cervical spin wo con* [id number] 04/20/2023 4:48 PM RADIATION DOSE METRICS: Total DLP (mGy-cm): 1026.2 FINDINGS: Brain: Small amount of subarachnoid hemorrhage in the right frontoparietal sulci (series 11 image [id number]). mild diffuse cerebral parenchymal atrophy. Mild chronic microvascular cerebral parenchymal change. Cerebral ventricles: No ventriculomegaly. Paranasal sinuses: Mild polypoid mucosal thickening in the left sphenoid sinus. Mastoid air cells: Visualized mastoid air cells are well aerated. Bones: Unremarkable. No acute fracture. Soft tissues: Moderate left parietal scalp contusion and small amount of soft tissue air consistent with laceration. Several radiodense punctate radiopaque foreign bodies along the skin and subcutaneous tissues up to [address]/CT head wo con* [id number] IMPRESSION: 1. Small amount right frontoparietal subarachnoid hemorrhage. 2. Moderate left parietal scalp hematoma with soft tissue pannus consistent with laceration. Several small embedded radiopaque scalp foreign bodies are noted. Other chronic findings detailed above. COMMENTS: THIS REPORT CONTAINS FINDINGS THAT MAY BE CRITICAL TO PATIENT CARE. The exam findings were verbally communicated by me to BHAVESH Shaw via telephone conference at 5:01 PM CDT on 01/23/2024. The findings were acknowledged and understood.
--- NOTE | 2024-01-23 16:24 | ED_ITS ---
HPI - Head Injury 2 General: Chief complaint: Head Injury Stated complaint: Fell of ladder head injury Time Seen by Provider: 01/23/24 16:21 Source: patient Mode of arrival: ambulatory Limitations: no limitations History of Present Illness: 73-year-old female states that she was o n second rung of a ladder try to get Wass down from the area of her house and she did fell off the ladder. States she did hit her head on a concrete block this happened roughly 30 minutes ago. She does have a laceration left side of her head denies any loss consciousness she does have a headache she rates a 6 out of 10 denies any other injuries denies any neck pain. Associated symptoms: Deny nausea, neck pain or vomiting Review of Systems 2 Const: Denies: fever(s), chills, body aches or change in appetite Eyes: Denies: blurry vision or eye discomfort ENMT: Denies: throat pain or dental pain Card: Denies: chest pain Resp: Denies: dyspnea GI: Denies: abdominal pain, nausea, vomiting or diarrhea Musc: Denies: neck pain or back pain Skin/Breast: Denies: rash Neuro: Reports: headache(s) PFSH ED 2 PFSH: Medical History RBBB Hematuria Familial polyposis of colon Osteoporosis CKD (chronic kidney disease) Hyperlipidemia due to dietary fat intake Renal calculus, left Mixed stress and urge urinary incontinence Palpitation Surgical History S/P oophorectomy S/P foot surgery S/P ileostomy 12 surgeries S/P hysterectomy Family History Daughter , at 28 Colon cancer Sister , at 32 Colon cancer Mother , at age 46 Colon cancer Father , at age 59 Leukemia Son , Grandson at age 31 Overdose Other CAD (coronary artery disease) Cancer Familial polyposis Social History Smoking and tobacco/nicotine status: never used tobacco/nicotine Alcohol intake: never Adopted: No Caregiver/support person: No Lives independently: No Marital status: Current occupational status: retired Physical Exam 2 Const: COMMON NORMALS: no acute distress, patient oriented x3 and healthy appearing HENMT: OTHER: 4 cm laceration noted to the left pariet al region Eye: COMMON NORMALS: Equal, round and reactive pupils present and EOMs intact bilaterally PUPIL: Yes Equal, round and reactive pupils present Neck/C-Spine: COMMON NORMALS: full ROM and supple CERVICAL SPINE: Yes cervical ROM normal and No Cervical spine tenderness Chest: COMMONS NORMALS: normal inspection of the chest Resp: COMMON NORMALS: normal respiratory effort Cardio: COMMON NORMALS: regular rate, regular rhythm and No murmurs present (Cardio) RATE: regular rate RHYTHM: regular rhythm Extremity: COMMON NORMALS: normal to inspection and full ROM Neuro: COMMON NORMALS: patient oriented x3, moves all extremities and no focal motor deficits Psych: COMMON NORMALS: mental status grossly normal, Normal thought process present and cooperative THOUGHT PROCESS: Normal thought process present Skin: COMMON NORMALS: no rashes or lesions noted and no wounds GENERAL SKIN EXAM: no rashes or lesions noted Procedures Laceration Laceration 1: Site: scalp Side (If applicable): left Size (cm): 5 Description: linear Depth: simple, single layer Local Anesthetic: lidocaine 1% Amount of anesthesia used (mL): 10 Pre-repair: wound explored, irrigated extensively and deep structures intact Skin layer closed with: other (yuri) Number of sutures: 6 Course 2 Vital Signs: Vital signs: Vital Signs Temperature 97.9 F 01/23/24 16:16 Pulse Rate 67 01/23/24 17:30 Respiratory Rate 18 01/23/24 16:16 Blood Pressure 142/83 01/23/24 17:30 Pulse Oximetry 99 01/23/24 17:30 Oxygen Delivery Me thod Room Air 01/23/24 17:30 MDM - Head Injury Medcial Decision Making Patient presents here with head injury after falling off a ladder she does have a subarachnoid hemorrhage noted on CT GCS 15 here did repair the laceration I did speak to [facility] ER will transfer there for higher level of care for neurosurgery Medical Records I reviewed the patient's medical records. Lab Data I reviewed the patient's lab results. 01/23/24 17:32 01/23/24 17:[address] 01/23/24 16:24 IMPRESSION: 1. Small amount right frontoparietal subarachnoid hemorrhage. 2. Moderate left parietal scalp hematoma with soft tissue pannus consistent with laceration. Several small embedded radiopaque scalp foreign bodies are noted. Other chronic findings detailed above. COMMENTS: THIS REPORT CONTAINS FINDINGS THAT MAY BE CRITICAL TO PATIENT CARE. The exam findings were verbally communicated by me to BHAVESH Shaw via telephone conference at 5:01 PM CDT on 01/23/2024. The findings were acknowledged and understood. Laboratory Results WBC 5.83 10^3/uL (3.29-11.43) 01/23/24 17:32 RBC 4.38 10^6/uL (3.85-5.65) 01/23/24 17:32 Hgb 12.80 g/dL (11.27-16.99) 01/23/24 17:32 Hct 40.2 % (36-47) 01/23/24 17:32 MCV 91.8 fl (85-98) 01/23/24 17:32 MCH 29.2 pg (27-33) 01/23/24 17:32 MCHC 31.8 g/dL (30-55) 01/23/24 17:32 RDW 13.7 % (12.1-15.1) 01/23/24 17:32 Plt Count 146 10^3/cmm (157-399) L 01/23/24 17:32 MPV 9.7 fL (7.4-10.4) 01/23/24 17:32 Neut % (Auto) 49.9 % 01/23/24 17:32 Lymph % (Auto) 36.0 % 01/23/24 17:32 Ciales % (Auto) 9.9 % 01/23/24 17:32 Eos % (Auto) 3.1 % 01/23/24 17:32 Baso % (Auto) 0.9 % 01/23/24 17:32 Neut # (Auto) 2.91 10^3/uL (1.8-7.7) 01/23/24 17:32 Lymph # (Auto) 2.1 10^3/uL (0.8-4.8) 01/23/24 17:32 [place]es # (Auto) 0.6 10^3/uL (0.2-0.9) 01/23/24 17:32 Eos # (Auto) 0.2 10^3/uL (0.0-0.8) 01/23/24 17:32 Baso # (Auto) 0.1 10^3/uL (0.0-0.1) 01/23/24 17:32 Nucleated RBC % (auto) 0 % 01/23/24 17:32 Nucleated RBCs # 0.0 /100WBC 01/23/24 17:32 Sodium 139 mmol/L (136-145) 01/23/24 17:32 Potassium 4.3 mmol/L (3.5-5.1) 01/23/24 17:32 Chloride 107 mmol/L (98-107) 01/23/24 17:32 Carbon Dioxide 19 mmol/L (22-29) L 01/23/24 17:32 Anion Gap 17.3 (5-19) 01/23/24 17:32 BUN 20 mg/dL (8-23) 01/23/24 17:32 Creatinine 1.8 mg/dL (0.5-0.9) H 01/23/24 17:32 GFR Calculation Not Reportable 01/23/24 17:32 Glucose 94 mg/dL (65-115) 01/23/24 17:32 Calculated Osmolality 290 mOsm/kg (285-295) 01/23/24 17:32 Calcium 9.0 mg/dL (8.5-10.5) 01/23/24 17:32 All radiology interpretation(s) finalized by discharge Discharge Plan Discharge Condition: Stable Prescriptions: No Action levothyroxine 25 mcg capsule 25 mcg PO DAILY ondansetron HCl [Zofran] 4 mg tablet 4 mg PO Q8H PRN sertraline [Zoloft] 50 mg tablet 50 mg PO DAILY vitamin B complex [B Complex-Vitamin B12] Tablet 1 tab PO DAILY alprazolam [Xanax] 0.5 mg tablet 0.5 mg PO DAILY cholecalciferol (vitamin D3) 50 mcg (2,000 unit) capsule 2,000 unit PO DAILY guaifenesin [Mucinex] 600 mg tablet extended release 12hr 600 mg PO Q12H PRN simvastatin 20 mg tablet 20 mg PO DAILY fluticasone propionate [Flonase Allergy Relief] 50 mcg/actuation spray,suspension 1 spray INTRANASAL DAILY PRN Rx Instructions: administer into each nostril famotidine 20 mg tablet 20 mg PO DAILY biotin 10,000 mcg capsule PO potassium chloride 10 mEq packet 10 meq PO DAILY omeprazole 20 mg capsule,delayed release(DR/EC) 20 mg PO DAILY sodium bicarbonate 650 mg tablet 500 mg PO BID (DME) hinged elbow brace See Rx Instructions .Route .MEDSUPPLY Qty: 1 0RF Rx Instructions: As directed oxybutynin chloride 5 mg tablet extended release 24 hr See Rx Instructions .ROUTE .COMPLEX Qty: 90 3RF Dose Instruction: TAKE 1 TABLET BY MOUTH DAILY. Rx Instructions: TAKE 1 TABLET BY MOUTH DAILY. metoprolol tartrate 25 mg tablet 12.5 mg PO BID Qty: 180 3RF Referrals: Tamra Temple FNP [Primary Care Provider] - Coding Level of Care Code ED Rigging Worker for Alena Parks
[2024-01-23] MEDS: hyDRALAzine 20 mg/mL INJ 1 mL 10 MG IVP ×2 (17:27→18:42)
[2024-01-23 17:30] VITALS: BP 142/83; PULSE 67; O2SAT 99
[2024-01-23 17:43] LABS: Basophils # 0.1 10^3/uL (0.0-0.1); Basophils % 0.9 %; Eosinophils # 0.2 10^3/uL (0.0-0.8); Eosinophils % 3.1 %; Hematocrit 40.2 % (36-47); Lymphocytes # 2.1 10^3/uL (0.8-4.8); Mean Corpuscular HGB Conc 31.8 g/dL (30-55); Mean Corpuscular Hemoglobin 29.2 pg (27-33); Mean Corpuscular Volume 91.8 fl (85-98); Mean Platelet Volume 9.7 fL (7.4-10.4); Monocytes # 0.6 10^3/uL (0.2-0.9); Monocytes % 9.9 %; Neutrophils # 2.91 10^3/uL (1.8-7.7); Neutrophils % 49.9 %; Nucleated Red Blood Cells % 0 %; Platelet Count 146 10^3/cmm (157-399); Red Blood Count 4.38 10^6/uL (3.85-5.65); Red Cell Distribution Width 13.7 % (12.1-15.1); White Blood Count 5.83 10^3/uL (3.29-11.43)
[2024-01-23 18:06] LABS: Anion Gap 17.3 (5-19); Blood Urea Nitrogen 20 mg/dL (8-23); Carbon Dioxide 19 mmol/L (22-29); Chloride 107 mmol/L (98-107); Glucose 94 mg/dL (65-115); Osmolality Calculated 290 mOsm/kg (285-295); Potassium 4.3 mmol/L (3.5-5.1); Sodium 139 mmol/L (136-145)
[2024-01-23 18:16] LABS: INR 0.91 (0.8-1.2)
[2024-01-23 18:29] VITALS: BP 115/64; PULSE 77; O2SAT 98
[2024-01-23] MEDS: LORazepam 2 mg/mL INJ 1 mL 0.5 MG IVP (19:21)
[2024-01-23] MEDS: nicardipine 20 MG/200 ML PREMIX 50 MG IV (19:22)
[2024-01-23] MEDS: lidocaine 1% INJ 10 mL (per mL) INJECTION (19:24)
--- NOTE | 2024-01-23 19:25 | PC.NURSE ---
nicardipine pulled from [facility] and given to EMS crew for transfer.
[2024-01-23] MEDS: HYDROmorphone 1 mg/mL INJ 1 mL 0.5 MG IVP (19:29)
[2024-01-23 19:32] VITALS: BP 115/64; PULSE 77; RESP 18; TEMP 36.6; O2SAT 98
== END 2024-01-23 19:36 ==
PROVIDERS: Emergency Provider Emergency Medicine; PCP Nurse Practitioner Family
DX: S01.01XA Laceration without foreign body of scalp, initial encounter (principal); S06.6XAA Traumatic subarachnoid hemorrhage with loss of consciousness status unknown, initial encounter; W11.XXXA Fall on and from ladder, initial encounter; N18.9 Chronic kidney disease, unspecified; E78.5 Hyperlipidemia, unspecified
CPT/HCPCS: 12002; 70450; 80048; 85025; 85610; 96374; 96375; 96376; 99285; 99291; 99292; J0360; J1170; J2060

== ENCOUNTER → 2024-03-27 09:38 | Outpatient (BNVA) | payer MEDICARE, OTHER, SELFPAY | PROVIDERS: PCP Nurse Practitioner Family; Visit Provider Nurse Practitioner Family | DX: L57.0 Actinic keratosis (principal); L82.1 Other seborrheic keratosis; D22.5 Melanocytic nevi of trunk; L82.0 Inflamed seborrheic keratosis; D36.11 Benign neoplasm of peripheral nerves and autonomic nervous system of face, head, and neck; D36.12 Benign neoplasm of peripheral nerves and autonomic nervous system, upper limb, including shoulder; L91.8 Other hypertrophic disorders of the skin | CPT/HCPCS: 17000; 17110; 99213 ==

== ENCOUNTER → 2024-07-29 15:44 | Outpatient (BNVA) | payer MEDICARE, OTHER, SELFPAY | PROVIDERS: PCP Nurse Practitioner Family; Visit Provider Internal Medicine Cardiovascular Disease | DX: Z87.898 Personal history of other specified conditions (principal); Z87.828 Personal history of other (healed) physical injury and trauma; I45.10 Unspecified right bundle-branch block | CPT/HCPCS: 99214 ==

== ENCOUNTER → 2024-12-12 10:30 | Outpatient (BNVA) | payer MEDICARE, OTHER, SELFPAY | PROVIDERS: PCP Nurse Practitioner Family; Visit Provider Nurse Practitioner Family | DX: L82.1 Other seborrheic keratosis (principal); D22.5 Melanocytic nevi of trunk; D36.11 Benign neoplasm of peripheral nerves and autonomic nervous system of face, head, and neck; D36.12 Benign neoplasm of peripheral nerves and autonomic nervous system, upper limb, including shoulder; L72.0 Epidermal cyst; L53.8 Other specified erythematous conditions; L29.89 Other pruritus; Z78.9 Other specified health status; R20.8 Other disturbances of skin sensation; L57.0 Actinic keratosis | CPT/HCPCS: 17000; 17110; 99213 ==

== ENCOUNTER → 2025-01-27 15:47 | Outpatient (BNVA) | payer MEDICARE, OTHER, SELFPAY | PROVIDERS: PCP Nurse Practitioner Family; Visit Provider Internal Medicine Cardiovascular Disease | DX: I65.23 Occlusion and stenosis of bilateral carotid arteries (principal); R07.89 Other chest pain; I44.7 Left bundle-branch block, unspecified; Z86.73 Personal history of transient ischemic attack (TIA), and cerebral infarction without residual deficits | CPT/HCPCS: 99214 ==

== ENCOUNTER 2025-03-05 08:23 | Outpatient (CLI) | payer MEDICARE, OTHER, SELFPAY ==
--- NOTE | 2025-03-05 08:30 | MR_ITS ---
WS: [email or web address] EXAMINATION: MR hip RT wo/w con [id number] ORDER DATE: 03/05/2025 8:38 AM COMPARISON: None. HISTORY: AVASCULAR NECROSIS OF FEMORAL HEAD TECHNIQUE: Coronal STIR of the Pelvis. Coronal proton density, coronal T1, axial T2 fat sat, axial T1, sagittal T2 fat sat, and sagittal T1 performed of the hip. After contrast, axial T1 fat sat, coronal T1 fat sat, and sagittal T1 fat sat were performed. FINDINGS: Moderate to advanced degenerative arthritis RIGHT hip. Serpiginous areas of susceptibility artifact involving the RIGHT femoral head at the articular surface compatible with avascular necrosis. Slight edema within the articular surface femoral head. Associated sclerosis in the femoral head. RIGHT proximal femur is normal in appearance. Tiny joint effusion. Normal bone marrow signal in the bony pelvis and sacrum. MR/MR hip RT wo/w con [id number] IMPRESSION: 1. Avascular necrosis RIGHT hip with mild edema in the RIGHT femoral head. 2. Minimal subchondral depression. 3. Similar-appearing findings of avascular necrosis in the LEFT hip described on the LEFT hip MRI.
--- NOTE | 2025-03-05 08:37 | MR_ITS ---
WS: [email or web address] EXAMINATION: MR hip LT wo/w con [id number] ORDER DATE: 03/05/2025 8:38 AM COMPARISON: None. HISTORY: AVASCULAR NECROSIS TECHNIQUE: Coronal STIR of the Pelvis. Coronal proton density, coronal T1, axial T2 fat sat, axial T1, sagittal T2 fat sat, and sagittal T1 performed of the hip. After contrast, axial T1 fat sat, coronal T1 fat sat, and sagittal T1 fat sat were performed. FINDINGS: Moderate to advanced arthritis LEFT hip. Serpiginous area of susceptibility artifact involving the LEFT femoral head at the articular surface compatible with avascular necrosis. Slight edema within the articular surface femoral head. Associated sclerosis in the femoral head. Trace edema within the LEFT femoral neck. LEFT proximal femur is normal in appearance. Tiny joint effusion. Normal bone marrow signal in the bony pelvis and sacrum. MR/MR hip LT wo/w con [id number] IMPRESSION: 1. Avascular necrosis LEFT femoral head with slight edema. Minimal subchondral depression in some areas. 2. Moderate to advanced joint space narrowing LEFT hip. 3. Normal bone marrow signal in the bony pelvis and sacrum.
[2025-03-05] MEDS: gadobenate dimeglumine 20 mL vial IV (10:02)
== END 2025-03-05 08:24 | disposition home or self-care (01) ==
LOC: RAD 08:24
PROVIDERS: PCP Nurse Practitioner Family; Visit Provider Nurse Practitioner Family
DX: M87.052 Idiopathic aseptic necrosis of left femur (principal); M16.12 Unilateral primary osteoarthritis, left hip; M87.051 Idiopathic aseptic necrosis of right femur
CPT/HCPCS: 73723

== ENCOUNTER → 2025-03-27 10:22 | Outpatient (BNVA) | payer MEDICARE, OTHER, SELFPAY | PROVIDERS: PCP Nurse Practitioner Family; Visit Provider Nurse Practitioner Family | DX: L82.1 Other seborrheic keratosis (principal); D18.01 Hemangioma of skin and subcutaneous tissue; D36.11 Benign neoplasm of peripheral nerves and autonomic nervous system of face, head, and neck; D36.12 Benign neoplasm of peripheral nerves and autonomic nervous system, upper limb, including shoulder; L82.0 Inflamed seborrheic keratosis; R20.8 Other disturbances of skin sensation; Z78.9 Other specified health status; L53.8 Other specified erythematous conditions; L29.89 Other pruritus | CPT/HCPCS: 17110; 99213 ==

== ENCOUNTER 2025-05-19 12:09 | Outpatient (CLI) | payer MEDICARE, OTHER, SELFPAY ==
--- NOTE | 2025-05-19 12:13 | US_ITS ---
WS: [email or web address] Exam: US breast RT limited* [id number] Date/Time of Exam: 05/19/2025 1:18 PM Reason For Exam: SWELLING/LUMP IN R BREAST The RIGHT axilla is targeted for ultrasound evaluation. There was no evidence of suspicious solid mass or nodule in the RIGHT axilla. There were no cysts or other discrete abnormalities identified. BI-RADS Category 2. Benign. Recommendations: Continue yearly screening mammography. US/US breast RT limited* [id number] IMPRESSION: 1. No suspicious solid mass or nodule in the RIGHT axilla. Benign-appearing fat ty replaced small intramammary lymph node identified. BI-RADS Category 2.
--- NOTE | 2025-05-19 12:13 | MM_ITS ---
WS: [email or web address] VIEWS: MLO, CC, and ML views both breasts. 3D digital tomosynthesis is also included in this exam. A compression spot RIGHT MLO projection of the axilla was also included. Comparison made with prior exam of 07/13/2006, 10/19/2007, 10/20/2008, 01/13/2010, 02/17/2011, 08/10/2016, 01/17/2022, 12/06/2017, 12/27/2018, 01/10/2020, 01/13/2021,,. Findings: There are scattered areas of fibroglandular density. No suspicious mass, tumor calcification or architectural distortion identified. There are scattered small benign-appearing bilateral axillary lymph nodes. MM/MM diag BI tomosynthesis [id number] Impression: BI-RADS: 2 - Benign. FOLLOW-UP: 1 Year Follow-up This mammogram was also analyzed by the Computer Aided Detection System R2 Imag e Speech And Language Tutor.
== END 2025-05-19 12:10 | disposition home or self-care (01) ==
LOC: RAD 12:10
PROVIDERS: PCP Nurse Practitioner Family
DX: R22.31 Localized swelling, mass and lump, right upper limb (principal)
CPT/HCPCS: 76642; 77062; G0279

== ENCOUNTER 2025-05-23 18:48 | Emergency (ER) | payer MEDICARE, OTHER, SELFPAY ==
--- OUTSIDE RECORDS SUMMARY | 2025-05-23 18:54 | XMS_ITS | Encounter Summary ---
Author Organization [facility] Address [address] [place] [address] Care Team Providers Care Engineer Technician Name Role Phone Myriam Goodman DO Primary Care Provider [phone] Encounter Details Date Type Department Care Team (Late st Contact Info) Description 04/16/2025 Results Follow-Up [facility] [place] [address] [place] [address] Tamra Temple, GUS [address] [place] [address] MRI HIP W WO CONTRAST RIGHT Social History Tobacco Use Types Packs/Day Years Used Date Smoking Tobacco: Never Smokeless Tobacco: Never Alcohol Use Standard Drinks/Week Comments No 0 (1 standard drink = 0.6 oz pur e alcohol) Feeling Safe Answer Date Recorded Are you in a relationship wi th someone who hurts you emotionally and/or physically? 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 Gender Identity Female 04/12/2024 10:46 PM CDT Sexual Orientation Not on file documented as of this encounter Plan of Treatment Upcoming Encounters Date Type Department Care Team (Late st Contact Info) Description 10/01/2025 8:40 AM CDT [facility] [place] [address] [place] [address] Myriam Goodman DO [address] [place] [address] 11/27/2025 1:30 PM CDT Office Visit [facility] [address] [place] [address] Teodora Cook NP [address] [facility] [address] [place] [phone] documented as of this encounter Visit Diagnoses Not on filedocumented in this encounter Care Teams Engineer Technician Relationship Specialty Start Date End Date Myriam Goodman DO [address] [place] [phone] PCP - General Family Practice 07/13/16 documented as of this encounter
--- OUTSIDE RECORDS SUMMARY | 2025-05-23 18:54 | XMS_ITS | Clinical Summary ---
Author Organization [facility] Address [address] [address] Care Team Providers Care Vocational Guidance Counselor Name Role Phone Myriam Goodman DO Primary Care Provider [phone] Allergies Active Allergy Reactions Criticality Noted Date Comments Alpha-Gal Other (see comments) Low 12/30/2022 Aspirin Hives,Other (see comments) 7 Hydromorphone 03/11/2025 Hydrocodone Rash Low 12/14/2022 Morphine Hives,Other (see comments) 7 Sulfa Antibiotics Hives 06/24/2016 Medications * This document contains information received from the source organization and may not represent a complete record from that organization. triamcinolone (KENALOG) 0.1 % cream APPLY TO NECK AND BOTTOM OF LEFT FOOT TWICE DAILY UNTIL RASH IMPROVES. 9 Active simvastatin (ZOCOR) 20 MG tablet Take 1 tablet by mouth 1 (one) time each day 8 Active sertraline (ZOLOFT) 50 MG tablet Take 1 tablet by mouth 1 (one) time each day 8 Active ondansetron ODT (ZOFRAN-ODT) 4 MG dispersible tablet Take 4 mg by mouth 3 (three) times a day if needed 7 Active levothyroxine (SYNTHROID, LEVOTHROID) 25 MCG tablet Take 1 tablet by mouth 1 (one) time each day in the morning 8 Active guaiFENesin (MUCINEX) 600 MG 12 hr tablet Take 1 tablet by mouth 1 (one) time each day if needed Active fluticasone (FLONASE) 50 MCG/ACT nasal spray Administer 1 spray into affected nostril(s) 1 (one) time each day if needed Active ALPRAZolam (XANAX) 1 MG tablet Take 1 tablet by mouth every night 9 Active MAGNESIUM CITRATE PO Take 1 tablet by mouth 3 (three) times a week Active acetaminophen (TYLENOL) 500 MG tablet Take 1,000 mg by mouth if needed for moderate pain Active UNABLE TO FIND Take 1 tablet by mouth 1 (one) time each day Tart Johnson Extract Active famotidine (PEPCID) 20 MG tablet Take 20 mg by mouth in the morning and 20 mg in the evening. Active gabapentin (NEURONTIN) 600 MG tablet Take 600 mg by mouth 1 (one) time each day 4 Active sodium bicarbonate 650 MG tabletIndication s:Chronic metabolic acidosis Take 3-650 mg tablets by mouth in the morning, and 2-650 mg tablets by mouth in the evening 450 tablet 3 5 07/16/19 26 Active potassium chloride (Klor-Con) 20 MEQ packetIndication s:Acute metabolic acidosis,Chronic kidney disease, stage 4 (severe) ([facility]) Take 10 mEq by mouth 1 (one) time each day 100 packet 5 Active Active Problems Problem Noted Date Diagnosed Date Renal stone 09/06/2023 Mixed urinary incontinence 09/06/2023 Small bowel obstruction 03/07/2023 03/07/20 23 Familial multiple polyposis syndrome 02/21/2021 03/07/2023 Gastro-esophageal reflux disease without esophag itis 09/20/2020 03/07/2023 Renal osteodystrophy 01/29/2020 Stage 3b chronic kidney disease 01/29/2020 Blood urate above reference range 11/11/2016 Mixed hyperlipidemia 06/24/2016 Resolved Problems Problem Noted Date Diagnosed Date Resolved Date Chronic kidney disease stage 4 01/29/2020 01/29/2020 Encounters Date Type Department Care Team Description 03/19/2025 Patient Outreach [facility] [address] [place] [address] Denise Martini 03/14/2025 Orders Only [facility] [address] [place] [phone] Irma Leslie NP Stage 3b chronic kidney disease (HCC); Vitamin D deficiency, not otherwise specified 03/11/2025 11:30 AM CDT Office Visit [facility], [address] [place] [address] [address] Duyen Mccormack NP Stage 3b chronic kidney disease (HCC) (Primary Dx); Renal osteodystrophy; Mixed hyperlipidemia 03/05/2025 Telephone [facility], [address] [address] Berenice Cannon 03/04/2025 Orders Only [facility], [facility] [address] [place] [address] Irma Leslie NP 02/24/2025 Telephone [facility], [facility] [address] [place] [address] Kaleigh Avina MD from Last 3 Months Immunizations Immunization Administration Dates Next Due Influenza Split High Dose Pr eservative Free IM 03/27/2020,04/02/2019,04/09/2018,05/01,05/28/2015 Pneumococcal Conjugate 13-Valent 05/28/2015 Pneumococcal Polysaccharide 05/01/2017 Zoster 12/11/2018,10/10/2018,05/28/2015 Family History Medical History Relation Comments Cancer Father Heart disease Father Tuberculosis Father Cancer Mother Cancer Sister Relation Status Comments Father Mother Sister Social History Tobacco Use Types Packs/Day Years Used Date Smoking Tobacco: Never Smokeless Tobacco: Never Tobacco Cessation:Counseling Given: Not Answered Alcohol Use Standard Drinks/Week Comments Never 0 (1 standard drink = 0.6 oz pur e alcohol) AUDIT-C Answer Date Recorded Frequency of Alcohol Consumption Never 06/30/2020 Average Number of Drinks Not on file 021 Frequency of Binge Drinking Not on file 06/19 Comments Unknown Sex and Gender Information Value Date Recorded Sex Assigned at Not on file Legal Sex Female 12:44 PM EST Gender Identity Not on file Sexual Orientation Not on file Last Filed Vital Signs Vital Sign Reading Time Taken Comments Blood Pressure 108/68 03/11/2025 11:15 AM CDT Pulse 64 03/11/2025 11:15 AM CDT Temperature 36.4 C (97.6 F) 06/30/2020 9:31 AM 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 Respiratory Rate - - Oxygen Saturation 96% 09/11/2024 11:15 AM CDT Inhaled Oxygen Concentration - - Weight 70.8 kg (156 lb) 03/11/2025 11:15 AM CDT Height 162.6 cm (5' 4 ) 03/11/2025 11:15 AM CDT Body Mass Index 26.78 03/11/2025 11:15 AM CDT Plan of Treatment Upcoming Encounters Date Type Department Care Team (Late st Contact Info) Description 07/02/2025 9:30 AM 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 Office Visit [facility] [address] [place] [address] Irma Leslie NP [address] [facility] [address] [place] [address] Health Maintenance Due Date Last Done Comments Breast Cancer Screening 1949 Colorectal Cancer Screening: Annual FOBT 1998 Colorectal Cancer Screening: Colonoscopy 1998 Colorectal Cancer Screening: Sigmoidoscopy 1998 Pneumococcal Vaccine: 50+ Years Completed 05/01/2017, 05/28/2015 Pneumococcal Vaccine: Peds (0 to 5 Years) and At-Risk Patients (6 to 49 Years) Discontinued 05/01/2017, 05/28/2015 Influenza Vaccine Completed 04/02/2025, , 03/27/2020, Additional history exists Hepatitis B Vaccine Aged Out No longe r eligible based on patient's age to complete this topic Procedures Procedure Name Priority Date/Time Associated Diagnosis Comments VITAMIN D 25 HYDROXY Routine 03/04/2025 9:45 AM CDT PTH, INTACT Routine 03/04/2025 9:45 AM CDT CBC Routine 03/04/2025 9:45 AM CDT URINE ALBUMIN / CREATININE RATIO Routine 03/04/2025 9:45 AM CDT RENAL FUNCTION PANEL Routine 03/04/2025 9:45 AM CDT from Last 3 Months Results * Urine Albumin / Creatinine Ratio (03/04/2025 9:45 AM CDT) Creatinine, Ur 253 20 - 275 mg/dL [facility] Urine Microalbumin 2.4 See Note: mg/dL [facility] Comment: Reference Range: Reference Range Not established Microalb/Creat Ratio 9 <30 mg/g creat [facility] Comment: The ADA defines abnormalities in albumin excretion as follows: Albuminuria Category Result (mg/g creatinine) Normal to Mildly increased <30 Moderately increased 30-299 Severely increased > OR = 300 The ADA recommends that at least two of three specimens collected within a 3-6 month period be abnormal before considering a patient to be within a diagnostic category. 03/04/2025 9:45 AM CDT 03/05/2025 8:29 AM CDT Narrative [facility] - 03/06/2025 4:36 AM CDT FASTING: UNKNOWN Resulting Agency Comment Performing Organization Information: Site ID: [id number] Name: [facility] Address: [address] [place] [address] Director: Lana De Leon MD Irma Leslie MANAGER OF CORPORATE COMMUNICATIONS LAB URINE ORDERABLES Jess l Result GREG RAMOS [facility] [address] [place] [address] * Vitamin D 25 Hydroxy (03/04/2025 9:45 AM CDT) Vitamin D, 25-OH, Total, IA 42 30 - 100 ng/mL [facility] Comment: Vitamin D Status 25-OH Vitamin D: Deficiency: <20 ng/mL Insufficiency: 20 - 29 ng/mL Optimal: > or = 30 ng/mL For 25-OH Vitamin D testing on patients on D2-supplementation and patients for whom quantitation of D2 and D3 fractions is required, the [facility](TM) 25-OH VIT D, (D2,D3), LC/MS/MS is recommended: order code 31133 (patients >2yrs). See Note 1 Note 1 For additional information, please refer to http://education.Netseer/faq/YDT188 (This link is being provided for informational/ educational purposes only.) 03/04/2025 9:45 AM CDT 03/05/2025 8:29 AM CDT Narrative [facility] - 03/06/2025 4:36 AM CDT FASTING: UNKNOWN Resulting Agency Comment Performing Organization Information: Site ID: [id number] Name: [facility] Address: [address] [place] [address] Director: Lana De Leon MD Irma Leslie MANAGER OF CORPORATE COMMUNICATIONS LAB BLOOD ORDERABLES Jess goodman Result GREG RAMOS Greg Jarvis [address] [place] [address] * (ABNORMAL) CBC (03/04/2025 9:45 AM CDT) WBC 6.1 3.8 - 10.8 Thousand/u L [facility] RBC 4.70 3.80 - 5.10 Million/uL [facility] Hemoglobin 14.5 11.7 - 15.5 g/dL [facility] Hematocrit 45.1(H) 35.0 - 45.0 % [facility] MCV 96.0 80.0 - 100.0 fL [facility] MCH 30.9 27.0 - 33.0 pg [facility] MCHC 32.2 32.0 - 36.0 g/dL [facility] Comment: For adults, a slight decrease in the calculated MCHC value (in the range of 30 to 32 g/dL) is most likely not clinically significant; however, it should be interpreted with caution in correlation with other red cell parameters and the patient's clinical condition. RDW 13.2 11.0 - 15.0 % [facility] Platelets 167 140 - 400 Thousand/u L [facility] MPV 10.1 7.5 - 12.5 fL [facility] 03/04/2025 9:45 AM CDT 03/05/2025 8:29 AM CDT Narrative [facility] - 03/06/2025 4:36 AM CDT FASTING: UNKNOWN Resulting Agency Comment Performing Organization Information: Site ID: [id number] Name: [facility] Address: [address] [place] [address] Director: Lana De Leon MD Irma Leslie MANAGER OF CORPORATE COMMUNICATIONS LAB BLOOD ORDERABLES Jess l Result Performing Organization Address [facility] de Phone Number GREG RAMOS [facility] [address] * PTH, Intact (03/04/2025 9:45 AM CDT) Parathyroid Hormone, Intact 42 16 - 77 pg/mL [facility] Comment: Interpretive Guide Intact PTH Calcium ------- Normal Parathyroid Normal Normal Hypoparathyroidism Low or Low Normal Low Hyperparathyroidism Primary Normal or High High Secondary High Normal or Low Tertiary High High Non-Parathyroid Hypercalcemia Low or Low Normal High 03/04/2025 9:45 AM CDT 03/05/2025 8:29 AM CDT Narrative [facility] - 03/06/2025 4:36 AM CDT FASTING: UNKNOWN Resulting Agency Comment Performing Organization Information: Site ID: [id number] Name: [facility] Address: [address] [place] [address] Director: Lana De Leon MD Irma Leslie MANAGER OF CORPORATE COMMUNICATIONS LAB BLOOD ORDERABLES Jess l Result Performing Organization Address City/[facility] de Phone Number GREG [facility] [address] [address] * (ABNORMAL) Renal Function Panel (03/04/2025 9:45 AM CDT) Glucose 92 65 - 99 mg/dL [facility] Comment: Fasting reference interval BUN 19 7 - 25 mg/dL [facility] Creatinine 1.89(H) 0.60 - 1.00 mg/dL [facility] eGFR CKD-EPI CR 2020 27(L) > OR = 60 mL/min/1.7 3m2 [facility] BUN/Creatinine Ratio 10 6 - 22 (calc) [facility] Sodium 135 135 - 146 mmol/L [facility] Potassium 3.6 3.5 - 5.3 mmol/L [facility] Chloride 100 98 - 110 mmol/L [facility] Bicarbonate (CO2) 21 20 - 32 mmol/L [facility] Calcium 9.5 8.6 - 10.4 mg/dL [facility] Phosphorus 4.0 2.1 - 4.3 mg/dL [facility] Albumin 4.5 3.6 - 5.1 g/dL [facility] 03/04/2025 9:45 AM CDT 03/05/2025 8:29 AM CDT Narrative [facility] - 03/06/2025 4:36 AM CDT FASTING: UNKNOWN Resulting Agency Comment Performing Organization Information: Site ID: [place] Name: [facility] Address: [address] [address] Director: Lana De Leon MD Irma Leslie NP LAB BLOOD ORDERABLES Jess goodman Result GREG [facility] [address] [phone] from Last 3 Months Insurance Medicare [employer] [place] [id number] Care Teams Vocational Guidance Counselor Relationship Specialty Start Date End Date Myriam Goodman DO [address] [facility] [place] [address] PCP - General Family Medicine 01/14/21
--- OUTSIDE RECORDS SUMMARY | 2025-05-23 18:54 | XMS_ITS | Encounter Summary ---
Author Organization [facility] Address [address] [place] [address] Care Team Providers Care Staff Analyst Name Role Phone RexMyriam canales Garima RAMÍREZ Primary Care Provider Encounter Details Date Type Department Care Team (Late st Contact Info) Description 12/12/[address] [facility] [address] [facility] [address] [place] [address] Suzi Jade, 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 us Suzi Shah Jade ORAL AND MAXILLOFACIAL SURGERY DIAGNOSTIC IMAGING ORDERABLES Final Result * MAMMO PRIOR STUDY (02/17/2011 12:05 PM CDT) Narrative 12/12/2017 12:05 PM CDT This exam was auto finalized to allow images to be scanned to PACS. us Suzi J Jade ORAL AND MAXILLOFACIAL SURGERY DIAGNOSTIC IMAGING ORDERABLES Final Result * MAMMO PRIOR STUDY (01/13/2010 12:10 PM CDT) Narrative 12/12/2017 12:06 PM CDT This exam was auto finalized to allow images to be scanned to PACS. us Suzi J Jade ORAL AND MAXILLOFACIAL SURGERY DIAGNOSTIC IMAGING ORDERABLES Final Result * MAMMO PRIOR STUDY (10/20/2008 12:10 PM CDT) Narrative 12/12/2017 12:06 PM CDT This exam was auto finalized to allow images to be scanned to PACS. us Suzi J Jade ORAL AND MAXILLOFACIAL SURGERY DIAGNOSTIC IMAGING ORDERABLES Final Result * MAMMO PRIOR STUDY (10/19/2007 12:00 PM CDT) Narrative 12/12/2017 12:00 PM CDT This exam was auto finalized to allow images to be scanned to PACS. us Suzi J Jade ORAL AND MAXILLOFACIAL SURGERY DIAGNOSTIC IMAGING ORDERABLES Final Result documented in this encounter Visit Diagnoses Diagnosis Screening for breast cancer Breast screening, unspecified Screening for breast cancer Breast screening, unspecified Screening for breast cancer Breast screening, unspecified Screening for breast cancer Breast screening, unspecified Screening for breast cancer Breast screening, unspecified Screening for breast cancer Breast screening, unspecified documented in this encounter Additional Health Concerns Assessment Noted Time PHQ-9 Depression Total Score: 2 11/12/19 17 8:00 AM CDT documented as of this encounter Care Teams Staff Analyst Relationship Specialty Start Date End Date Myriam Goodman DO [address] [place] [address] PCP - General Family Practice 07/13/16 documented as of this encounter
--- OUTSIDE RECORDS SUMMARY | 2025-05-23 18:54 | XMS_ITS | Clinical Summary ---
Author Organization [facility] Address [address] [place] [address] Care Team Providers Care Safety Pin Assembling Machine Operator Name Role Phone Myriam Goodman DO Primary Care Provider Allergies Active Allergy Reactions Criticality Noted Date Comments Aspirin Hives High 06/24/2016 Morphine Hives High 06/24/2016 Sulfa (Sulfonamide Antibiotics) Hives High 11/2016 Medications fluticasone (FLONASE) 50 mcg/spray Orefield, Suspension Administer 1 Orefield in each nostril daily. Active dextromethorphan -guaiFENesin (MUCINEX DM) 30-600 mg Tablet Sustained Release 12HR Take 2 Tablets by mouth daily. Active BIOTIN ORAL Take 1 Tablet by mouth daily. Active OTHER Adriane ostomy #3233 one piece, and [place] ostomy paste #7910. Pt changes every 5 days. DX Z93.2. 1 Each 8 Active Cholecalciferol, Vitamin D3, (VITAMIN D3) 2,000 unit Capsule TAKE 1 CAPSULE BY MOUTH DAILY. 90 Capsule 3 8 Active oxybutynin chloride (DITROPAN XL) 5 mg Extended Release 24 hour tablet Take 1 Tablet by mouth daily. 3 8 Active hydrOXYzine HCl (ATARAX) 10 mg tabletIndication s:Urticaria Take 1 Tablet (10 mg) by mouth 3 times daily as needed for Itching. 30 Tablet 9 Active NYSTOP 100,000 unit/gram powder APPLY TO AFFECTED AREA TWICE DAILY. 60 Gram 3 9 Active triamcinolone acetonide (KENALOG) 0.1 % CreamIndications :Urticaria APPLY TO NECK AND BOTTOM OF LEFT FOOT TWICE DAILY UNTIL RASH IMPROVES. 80 Gram 2 0 Active LEVOTHYROXINE 25 mcg tablet TAKE 1 TABLET BY MOUTH EVERY MORNING 90 Tablet 3 0 Active simvastatin (ZOCOR) 20 mg tablet TAKE 1 TABLET BY MOUTH LATE IN THE DAY. 90 Tablet 3 0 Active sertraline (ZOLOFT) 50 mg tabletIndication s:Moderate episode of recurrent major depressive disorder (CMS/HCC) TAKE 1 TABLET BY MOUTH DAILY. 90 Tablet 3 0 Active cyanocobalamin 1,000 mcg Tablet Sustained Release TAKE 1 TABLET(1000 MCG) BY MOUTH DAILY 90 Tablet 1 Active ondansetron (ZOFRAN ODT) 4 mg Tablet, Rapid DissolveIndicati ons:Nausea Take 1 Tablet (4 mg) by mouth every 8 hours as needed for Nausea/Emesis. Dissolve tablet on top of tongue, then swallow with saliva. 30 Tablet 1 Active ALPRAZolam (XANAX) 1 mg tabletIndication s:Generalized anxiety disorder Take 1 Tablet (1 mg) by mouth nightly as needed for Anxiety. 30 Tablet 5 1 Active famotidine (PEPCID) 20 mg tabletIndication s:Gastroesophage al reflux disease without esophagitis Take 1 Tablet (20 mg) by mouth 2 times daily. 180 Tablet 4 1 Active Active Problems Problem Noted Date Diagnosed Date Generalized anxiety disorder 09/20/2020 Gastroesophageal reflux disease without esophagi tis 09/20/2020 H/O partial resection of colon 04/13/2020 Renal osteodystrophy 01/29/2020 Stage 3b chronic kidney disease 07/06/2018 Memory loss 06/27/2017 Elevated liver enzymes 02/21/2017 Elevated uric acid in blood 11/11/2016 Hypothyroidism due to acquired atrophy of thyroi d 06/28/2016 History of colostomy reversal 06/24/2016 Recurrent major depressive disorder, in full rem ission 06/24/2016 History of colon polyps 06/24/2016 Mixed hyperlipidemia 06/24/2016 Small bowel obstruction Resolved Problems Problem Noted Date Diagnosed Date Resolved Date CKD (chronic kidney disease) stage 4, GFR 15-29 ml/min 08/16/2016 07/06/2018 Immunizations Immunization Administration Dates Next Due (PNEUMOVAX 23)(50 YRS UP) PN EUMOCOCCAL POLYSACCHARIDE (PPV23) 0.5 ML, IM 05/01/2017 (SHINGRIX)(50 YRS UP) ZOSTER VACCINE RECOMBINANT, 0.5 ML, IM 12/11/2018,10/10/2018 INFLUENZA VACCINE HIGH DOSE QUADRIVALENT 65 YR UP PF IM 03/27/2020 Influenza Vaccine High Dose 65+ Yrs IM 1 ,04/02/2019,04/09/2018,05/01,05/28/2015 PREVNAR (PCV13) pneumococcal 13-valent conjugate Vaccine 05/28/2015 Zoster Vaccine Live SQ 12/11/2018,10/10/2018,03/2015 Family History Medical History Relation Name Comments Cancer Daughter Heart Disease Father Leukemia Father Tuberculosis Father Colon Cancer Mother Breast Cancer Other NIECE Cancer Sister Relation Name Status Comments Daughter Father Mother Other NIECE Alive Sister Social History Tobacco Use Types Packs/Day Years Used Date Smoking Tobacco: Never Smokeless Tobacco: Never Tobacco Cessation:Counseling Given: Yes Alcohol Use Standard Drinks/Week Comments No 0 (1 standard drink = 0.6 oz pur e alcohol) Comments No Sex and Gender Information Value Date Recorded Sex Assigned at Not on file Legal Sex Female 12:16 PM FILTER PLANT SUPERVISOR Gender Identity Not on file Sexual Orientation Not on file Last Filed Vital Signs Vital Sign Reading Time Taken Comments Blood Pressure 122/70 11/17/2020 2:47 PM CDT Pulse 108 11/17/2020 2:47 PM CDT Temperature 36.6 C (97.9 F) 11/17/2020 2:47 PM CDT Respiratory Rate 18 11/17/2020 2:47 PM CDT Oxygen Saturation 96% 11/17/2020 2:47 PM CDT Inhaled Oxygen Concentration - - Weight 78.9 kg (174 lb) 11/17/2020 2:47 PM CDT Height 162.6 cm (5' 4 ) 11/17/2020 2:47 PM CDT Body Mass Index 29.87 11/17/2020 2:47 PM CDT Plan of Treatment Health Maintenance Due Date Last Done Comments FIT/ DNA Q 3 YEARS (AUTO ORDER) 1967 FLEX SIG/CT COLONOGRAPHY Q 5 YEARS (AUTO ORDER) 1967 DTAP/TDAP/TD VACCINES (1 - Tdap) 1968 COLORECTAL CANCER SCREENING (AUTO ORDER) 1994 COLORECTAL SCREENING 1994 FIT-DNA Q 3 years 1994 Flex Sig/CT Colonography Q 5 years 1994 Colorectal Cancer Screening (AUTO ORDER) 11/18/2017 Colorectal Cancer Screening 11/18/2017 FIT/FOBT Q 1 YEAR (AUTO ORDER) 11/18/2017 11/18/2016 , 11/18/2016 FIT/FOBT Q 1 year 11/18/2017 11/18/2016 Traditional Medicare (ACO) A nnual Wellness Visit 04/14/2021 04/13/2020, 07/03/2018 RSV VACCINE (60+ or ) (1 - 1-dose 75+ series) 2024 INFLUENZA VACCINE (#1) 2025 0, 03/27/2020, 04/02/2019, Additional history exists OSTEOPOROSIS SCREENING 02/22/2028 3, 05/12/2020, 11/22/2016 PNEUMOCOCCAL VACCINE 50+ YEARS Completed 05/01/2017 , 05/28/2015 ZOSTER VACCINE Completed 12/11/2018, 11/18, 10/10/2018, Additional history exists Procedures Procedure Name Priority Date/Time Associated Diagnosis Comments XR DEXA BONE DENSITY AXIAL 1 OR MORE SITES Routine 05/12/2020 2:48 PM FILTER PLANT SUPERVISOR Post-menopausal OCCULT BLOOD IMMUNOASSAY, COLORECTAL SCREEN Routine 11/18/2016 3:54 PM CDT Screening for colon cancer from Last 3 Months or Most Recently Relevant to Health Maintenance Results * XR DEXA BONE DENSITY AXIAL 1 OR MORE SITES (05/12/2020 2:48 PM FILTER PLANT SUPERVISOR) Anatomical Region Laterality Modality Digital Radiogra phy 05/12/2020 2:48 PM FILTER PLANT SUPERVISOR Impressions 05/12/2020 8:48 PM FILTER PLANT SUPERVISOR IMPRESSION: Abnormal examination Bone density lies in the osteopenic range in the left proximal femur lying above the average the patient's age-matched control consistent with age-appropriate physiologic demineralization responsible for her osteopenia. NOF guidelines recommend consideration of FDA-approved medical therapies in patients with FRAX determined 10-year probabilities of hip/major osteoporosis-related fractures equal or greater than 3%/20% respectively. Consider assessing fracture risk using the FRAX analysis tool for guidance of clinical management available online at www.shef.ac.uk/FRAX/. Enter [employer] for Select DXA and the Femoral Neck BMD value. Narrative 05/12/2020 8:48 PM FILTER PLANT SUPERVISOR DEXA Evaluation of the Lumbar Spine and Left Proximal Femur Reason for Consultation: Ovarian failure. Evaluation of bone mineral density. The following absorptiometry data were obtained. The quality of this examination is acceptable with regards to count density, processed images, data display and lack of important artifacts (including but not limited to motion and attenuation artifacts). Serial examination number one. L1-L4 BMD (g/cm2): 0.98 Adult T-score: -0.5 Adult Z-score: 1.6 Left Femoral Neck BMD (g/cm2): 0.740 Adult T-score: -1.0 Adult Z-score: 0.9 Left Total Hip BMD (g/cm2): 0.880 Adult T-score: -0.5 Adult Z-score: 1.0 Procedure Note David Cancino MD - 05/12/2020 DEXA Evaluation of the Lumbar Spine and Left Proximal Femur Reason for Consultation: Ovarian failure. Evaluation of bone mineral density. The following absorptiometry data were obtained. The quality of this examination is acceptable with regards to count density, processed images, data display and lack of important artifacts (including but not limited to motion and attenuation artifacts). Serial examination number one. L1-L4 BMD (g/cm2): 0.98 Adult T-score: -0.5 Adult Z-score: 1.6 Left Femoral Neck BMD (g/cm2): 0.740 Adult T-score: -1.0 Adult Z-score: 0.9 Left Total Hip BMD (g/cm2): 0.880 Adult T-score: -0.5 Adult Z-score: 1.0 IMPRESSION: Abnormal examination Bone density lies in the osteopenic range in the left proximal femur lying above the average the patient's age-matched control consistent with age-appropriate physiologic demineralization responsible for her osteopenia. NOF guidelines recommend consideration of FDA-approved medical therapies in patients with FRAX determined 10-year probabilities of hip/major osteoporosis-related fractures equal or greater than 3%/20% respectively. Consider assessing fracture risk using the FRAX analysis tool for guidance of clinical management available online at www.shef.ac.uk/FRAX/. Enter [employer] for Select DXA and the Femoral Neck BMD value. us Suzi [facility] DIAGNOSTIC IMAGING ORDERABLES Final Result * OCCULT BLOOD IMMUNOASSAY, COLORECTAL SCREEN (11/18/2016 3:54 PM CDT) OCCULT BLOOD, STOOL Negative Negative 11/22/2016 10:01 AM CDT [facility] Stool STOOL SPECIMEN / Unknown Collection / Unknown 11/18/2016 3:54 PM CDT 11/18/2016 8:48 PM CDT Suzi [facility] BODY FLUIDS AND STOOLS Final Result [facility] CLIA# [id number] [address] [place] [id number] from Last 3 Months or Most Recently Relevant to Health Maintenance Insurance MEDICARE PART A AND B [facility] [place] [address] MEDICARE PART A AND B Advance Directives For more information, please contact: [phone] * Full Code (Latest Code Status on File) Date Activated Date Inactivated Comments 11/01/2020 8:18 AM 11/03/2020 1:42 PM Care Teams Safety Pin Assembling Machine Operator Relationship Specialty Start Date End Date Myriam Goodman DO [address] [place] [address] PCP - General Family Practice 07/13/16
--- OUTSIDE RECORDS SUMMARY | 2025-05-23 18:54 | XMS_ITS | Encounter Summary ---
Author Organization [facility] Address 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 Topic: CPA Information Request >> May 22, 2025 12:24 PM Ilan Wilson wrote: Caller is returning phone call from clinic. Caller Name: Carmel Vega Patient/Caregiver Callback Number: [phone] (mobile) Clinic Did Not Leave Note In Chart Call Notes: Patient/Caller returning call, no note documented with instructions from clinic. Transferred to Backline/DRYING MACHINE OPERATOR PACKAGE YARNS Line and Rosaline answered call. AINABILITY PROJECT COORDINATOR documented in this encounter Plan of Treatment Upcoming Encounters Date Type Department Care Team (Late st Contact Info) Description 10/01/2025 8:40 AM CDT Office Visit [facility] Family Medicine [place] [address] [place] [address] Myriam Goodman DO [address] [place] [phone] 11/27/2025 1:30 PM CDT Office Visit [facility] [place] [address] [place] [address] Teodora Cook NP [address] [place] [phone] documented as of this encounter Visit Diagnoses Not on filedocumented in this encounter Care Teams Envelope Fold Operator Relationship Specialty Start Date End Date Myriam Goodman DO [address] [place] [facility] [place] [address] PCP - General Family Practice 07/13/16 documented as of this encounter
--- OUTSIDE RECORDS SUMMARY | 2025-05-23 18:54 | XMS_ITS | Clinical Summary ---
Author Organization [facility] Address [address] [place] [address] Care Team Providers Care Echocardiologist Name Role Phone Rex Myriam L DO Primary Care Provider Allergies Active Allergy Reactions Criticality Noted Date Comments Alpha-Gal (Tlfevkeib-Pavua-7,3-Galactose) Abdominal Pain Low 12/30/2022 Aspirin Hives High 06/24/2016 Hydromorphone Hives High 05/06/2025 Morphine Hives High 06/24/2016 Sulfa (Sulfonamide Antibiotics) Hives High 11/2016 Medications ostomy supplies Length of Need: 99 months Pouches and Wafers: Drainable Pouches, Frequency of change 2, QTY/Month 40 Other Supplies: Adhesive, Frequency of change 1, QTY/Month 20, Deodorant, Frequency of change 24oz/month, QTY/Month 24 oz, Paste, Frequency of change 4 oz/moth, QTY/Month 4 oz 1 Each 1 Active potassium CHLORIDE (KLOR-CON) 20 mEq Packet Take 10 mEq by mouth daily. 3 Active sodium bicarbonate 650 mg tablet Take 650 mg by mouth 2 times daily. Pt states takes 3 tabs Q AM & 2 tabs Q PM 5 Active famotidine (PEPCID) 40 mg tabletIndications: Gastroesophageal reflux disease without esophagitis Take 1 Tablet (40 mg) by mouth 2 times daily. 180 Tablet 3 5 Active triamcinolone acetonide (KENALOG) 0.1 % CreamIndications:P ruritic rash Apply to affected area 2 times daily. 80 Gram 2 5 Active simvastatin (ZOCOR) 40 mg tabletIndications: Mixed hyperlipidemia TAKE ONE TABLET BY MOUTH DAILY AT BEDTIME. 100 Tablet 3 5 Active sertraline (Zoloft) 100 mg tabletIndications: Generalized anxiety disorder,Recurrent major depressive disorder, in full remission Take 1 Tablet (100 mg) by mouth daily. 90 Tablet 4 5 Active ALPRAZolam (Xanax) 0.5 mg tabletIndications: Generalized anxiety disorder Take 1 Tablet (0.5 mg) by mouth nightly as needed for Anxiety. 30 Tablet 2 5 Active nitroglycerin (NITROSTAT) 0.4 mg Tablet, Sublingual dissolve 1 tablet under the tongue every 5 minutes as needed for chest pain. do not exceed a total of 3 doses in 15 minutes. 5 Active levothyroxine 25 mcg tabletIndications: Hypothyroidism due to acquired atrophy of thyroid Take 1 Tablet (25 mcg) by mouth daily in the morning. 90 Tablet 3 5 Active Active Problems Problem Noted Date Diagnosed Date Hx of total colectomy 05/06/2025 Hx of subarachnoid hemorrhage 04/13/2025 Status post cholecystectomy 11/22/2024 TIA (transient ischemic attack) 07/30/2024 Atherosclerosis of both carotid arteries 025 Cervical radiculopathy 07/17/2024 Overactive bladder 09/07/2023 Allergy to alpha-gal 04/07/2023 Osteopenia of multiple sites 04/07/2023 Vitamin D deficiency 04/07/2023 Cubital tunnel syndrome, left 04/05/2023 Neck pain 03/20/2023 History of small bowel obstruction 02/21/2021 Ileostomy status 02/21/2021 Familial polyposis 02/21/2021 Recurrent major depressive disorder, in full rem ission 02/21/2021 Generalized anxiety disorder 09/20/2020 Gastroesophageal reflux disease without esophagi tis 09/20/2020 H/O partial resection of colon 04/13/2020 Renal osteodystrophy 01/29/2020 Stage 3b chronic kidney disease 07/06/2018 Elevated uric acid in blood 11/11/2016 Hypothyroidism due to acquired atrophy of thyroi d 06/28/2016 Moderate episode of recurrent major depressive d isorder 06/24/2016 History of colon polyps 06/24/2016 Mixed hyperlipidemia 06/24/2016 History of colostomy reversal 06/24/2016 Resolved Problems Problem Noted Date Diagnosed Date Resolved Date Subarachnoid hemorrhage 01/26/2024 102 11/2024 Left carpal tunnel syndrome 04/05/2023 04/13/2025 Hand pain, not arthralgia, left 02/07/2023 04/13/2025 Allodynia 02/07/2023 04/13/2025 Left elbow pain 02/07/2023 04/13/2025 Olecranon fracture, left, cl osed, with delayed healing, subsequent encounter 02/07/2023 Memory loss 06/27/2017 04/13/2025 Elevated liver enzymes 02/21/201702/21 CKD (chronic kidney disease) stage 4, GFR 15-29 ml/min 08/16/2016 07/06/2018 Small bowel obstruction 10/2020 Encounters Date Type Department Care Team Description 05/22/2025 Telephone [facility] [address] [place] [facility] [place] [phone] Myriam Goodman DO Patient Communication 05/06/2025 12:00 PM AFTER SCHOOL CAREGIVER Office Visit [facility] [address] [place] [facility] [place] [phone] September, WATCHMAKING TEACHER Lump of axilla, right (Primary Dx); Other signs and symptoms in breast 05/06/2025 Telephone [facility] [address] [place] [facility] [place] [phone] September, WATCHMAKING TEACHER Patient Communication 05/02/2025 Nurse Triage [facility] [address] [place] [facility] [place] [phone] Myriam Goodman DO 04/17/2025 Orders Only [facility] [address] [place] [address] Jules Dailey, EMILY Hypothyroidism due to acquired atrophy of thyroid 04/16/2025 External Device Data [facility] ABSTRACTION Provider, Abstract 04/16/2025 Results Follow-Up [facility] [address] [place] [address] Tamra Temple, WATCHMAKING TEACHER MRI HIP W WO CONTRAST RIGHT 04/16/2025 Orders Only [facility] [address] [place] [address] Tamra Temple, WATCHMAKING TEACHER Avascular necrosis of femoral head, unspecified laterality ([facility]) 04/15/2025 External Device Data [facility] ABSTRACTION Provider, Abstract 04/15/2025 External Device Data [facility] ABSTRACTION Provider, Abstract 04/03/2025 Telephone [facility] [address] [place] [address] Myriam Goodman, Needs Orders Written 04/02/2025 8:40 AM CDT Office Visit [facility] [address] [place] [address] Myriam Goodman, Medicare annual wellness visit, subsequent (Primary Dx); Recurrent major depressive disorder, in full remission; Need for influenza vaccination; Upper abdominal pain, unspecified; Stage 3b chronic kidney disease; Gastroesophageal reflux disease without esophagitis; Hypothyroidism due to acquired atrophy of thyroid; Mixed hyperlipidemia; Overactive bladder; Osteopenia of multiple sites; Cervical radiculopathy; Neck pain; Atherosclerosis of both carotid arteries; Generalized anxiety disorder; H/O partial resection of colon; Hx of subarachnoid hemorrhage 03/07/2025 7:45 AM CDT Office Visit [facility] [address] [place] [phone] Saul Cox MD Bilateral hip pain (Primary Dx) 03/07/2025 7:15 AM CDT Ancillary Procedure [facility] [address] [place] [address] Saul Cox MD Bilateral hip pain 03/06/2025 Orders Only [facility] [address] [phone] Saul Cox MD Bilateral hip pain (Primary Dx) 03/04/2025 10:35 AM CDT - 03/04/2025 11:59 PM CDT Hospital Encounter [facility] [place] [address] [place] [phone] Irma Leslie NP Discharge Disposition: Home or Self Care 02/25/2025 External Device Data [facility] ABSTRACTION Provider, Abstract from Last 3 Months Immunizations Immunization Administration Dates Next Due (PNEUMOVAX 23)(50 YRS UP) PN EUMOCOCCAL POLYSACCHARIDE (PPV23) 0.5 ML, IM 05/01/2017 (SHINGRIX)(50 YRS UP) ZOSTER VACCINE RECOMBINANT, 0.5 ML, IM 12/11/2018,10/10/2018 INFLUENZA VACCINE HIGH DOSE QUADRIVALENT 65 YR UP PF IM 04/07/2023,03/31/2022,03/26/2021,03/27 INFLUENZA VACCINE HIGH DOSE TRIVALENT SPLIT VIRUS, (65 YR UP), 0.5ML (PF), IM 04/02/2025,04/16/2024 Influenza Vaccine High Dose 65+ Yrs IM 1 ,04/02/2019,04/09/2018,05/01,05/28/2015 PREVNAR (PCV13) pneumococcal 13-valent conjugate Vaccine 05/28/2015 Zoster Vaccine Live SQ 12/11/2018,10/10/2018,03/2015 Family History Medical History Relation Name Comments Cancer Daughter Alyssia Waddell Colon Cancer Daughter Alyssia Waddell Cancer Father Christiano Davis Heart Disease Father Christiano Ryan Leukemia Father Christiano Davis Tuberculosis Father Christiano Davis Pancreatic Cancer Maternal Aunt Cancer Maternal Grandmother Lipshenski Cancer Mother Saba Lucy Davis Colon Cancer Mother Saba Lucy Davis Leukemia Niece Hodgkin's lymphoma Paternal Uncle Cancer Sister Oriana Davis Colon Cancer Sister Oriana Davis Breast Cancer Neg Hx Metastatic Fara east Cancer Relation Name Status Comments Daughter Alyssia Waddell Father Christiano Davis Maternal Aunt Maternal Grandmother Osman Alive Mother Saba Davis Niece Other NIECE Paternal Uncle Sister Oriana Davis Social History Tobacco Use Types Packs/Day Years Used Date Smoking Tobacco: Never Smokeless Tobacco: Never Tobacco Cessation:Counseling Given: No Alcohol Use Standard Drinks/Week Comments No 0 [...] PM CDT Legal Sex Female 11:37 AM AFTER SCHOOL CAREGIVER Gender Identity Female 04/12/2024 10:46 PM CDT Sexual Orientation Not on file Last Filed Vital Signs Vital Sign Reading Time Taken Comments Blood Pressure 118/72 05/06/2025 11:58 AM AFTER SCHOOL CAREGIVER Pulse 96 05/06/2025 11:58 AM AFTER SCHOOL CAREGIVER Temperature 37.3 C (99.2 F) 05/06/2025 11:58 AM AFTER SCHOOL CAREGIVER Respiratory Rate 18 02/14/2025 1:19 PM CDT Oxygen Saturation 97% 05/06/2025 11:58 AM AFTER SCHOOL CAREGIVER Inhaled Oxygen Concentration - - Weight 70.3 kg (155 lb) 05/06/2025 11:58 AM AFTER SCHOOL CAREGIVER Height 162.6 cm (5' 4 ) 05/06/2025 11:58 AM AFTER SCHOOL CAREGIVER stated Body Mass Index 26.61 05/06/2025 11:58 AM AFTER SCHOOL CAREGIVER Plan of Treatment Upcoming Encounters Date Type Department Care Team (Late st Contact Info) Description 10/01/2025 8:40 AM CDT Office Visit [facility] [address] [place] [address] Myriam Goodman, DO [address] [place] [facility] [place] [phone] 11/27/2025 1:30 PM CDT Office Visit [facility] [place] [address] [place] [address] Teodora Cook NP [address] [place] [address] Health Maintenance Due Date Last Done Comments DTAP/TDAP/TD VACCINES (1 - Tdap) 1968 FIT-DNA Q 3 years 1994 Flex Sig/CT Colonography Q 5 years 1994 FIT/FOBT Q 1 year 11/18/2017 11/18/2016 RSV VACCINE (60+ or ) (1 - 1-dose 75+ series) 2024 COVID-19 Vaccine (2024-2 6 season) 2025 06/08/2022, 03/19/2021, 08/14/2020, Additional history exists Traditional Medicare (ACO) A nnual Wellness Visit 04/03/2026 04/02/2025, 04/07/2023 OSTEOPOROSIS SCREENING 02/22/2028 , 05/12/2020, 05/12/2020, Additional history exists COLORECTAL SCREENING 05/06/2035 05/06/2025, 04/07/2023, 10/17/2022 Colorectal Cancer Screening 05/06/2035 PNEUMOCOCCAL VACCINE 50+ YEARS Completed 05/01/2017 , 05/28/2015 ZOSTER VACCINE Completed 12/11/2018, 11/18, 10/10/2018, Additional history exists INFLUENZA VACCINE Completed 04/02/2025, , 04/07/2023, Additional history exists Medical Devices Implanted Type Area Male Infertility Specialist Device Identifier Shelf Expiration Date Model / Serial / Lot Clip Crtg Med/Lrg 1112 - [id number] Implanted:Qty: 1 on 09/03/2024 by David Gage MD at [facility] Clip N/A: Abdomen [employer] [id number] 03/16/2029 1112 / / [id number] Procedures Procedure Name Priority Date/Time Associated Diagnosis Comments XR PELVIS 3+ VW Routine 03/07/2025 7:23 AM CDT Bilateral hip pain MRI HIP W WO CONTRAST LEFT Stat 03/05/2025 Avascular necrosis of femoral head, unspecified laterality (CMS/HCC) MRI HIP W WO CONTRAST RIGHT Stat 03/05/2025 Avascular necrosis of femoral head, unspecified laterality (CMS/HCC) REFERENCE LAB PROCESSING FEE Routine 03/04/2025 11:00 AM CDT Chronic kidney disease (CKD) stage G3b/A1, moderately decreased glomerular filtration rate (GFR) between 30-44 mL/min/1.73 square meter and albuminuria creatinine ratio less than 30 mg/g (CMS/HCC) XR DEXA BONE DENSITY AXIAL 1 OR MORE SITES Routine 02/21/2023 9:11 AM CDT Closed fracture of left olecranon process with routine healing Osteopenia of multiple sites OCCULT BLOOD IMMUNOASSAY, COLORECTAL SCREEN Routine 11/18/2016 3:54 PM CDT from Last 3 Months or Most Recently Relevant to Health Maintenance Results * XR PELVIS 3+ VW (03/07/2025 7:23 AM CDT) Anatomical Region Laterality Modality Pelvis Computed Radiogr aphy Narrative 03/07/2025 2:38 PM CDT 5 views of the affected LEFT hip(s) and pelvis obtained on March 07, 2025 in clinic and personally read as follows: -Joint space narrowing -mild -Periarticular osteophytes Saul Cox MD DIAGNOSTIC IMAGING ORDSharla PIKE Final Result * MRI HIP W WO CONTRAST RIGHT (03/05/2025) Anatomical Region Laterality Modality Lower Extremity Magnetic Resonan ce Tamra Temple WATCHMAKING TEACHER MR ORDERABLES Final Resu lt * MRI HIP W WO CONTRAST LEFT (03/05/2025) Anatomical Region Laterality Modality Lower Extremity Magnetic Resonan ce us Tamra Temple WATCHMAKING TEACHER MR ORDERABLES Final Resu lt * REFERENCE LAB PROCESSING FEE (03/04/2025 11:00 AM CDT) REFERENCE LAB SENDOUT Sent to Ref Lab 03/04/2025 1:02 PM CDT [facility] Other, specify BLOOD SPECIMEN / Unknown Collection / Unknown 03/04/2025 11:00 AM CDT 03/04/2025 11:16 AM CDT Irma Leslie OPERATIONS PLANNER CHEMISTRY ORDERABLES Final Result [facility] CLIA # [id number] [address] [place] [id number] * XR DEXA BONE DENSITY AXIAL 1 OR MORE SITES (02/21/2023 9:11 AM CDT) T-SCORE HIP (LEFT) -0.70 -1.0 - 1.0 INTERFACE SYSTEM T-SCORE SPINE -0.30 -1.0 - 1.0 INTER FACE SYSTEM Anatomical Region Laterality Modality Digital Radiogra phy 02/21/2023 9:11 AM CDT Impressions 02/21/2023 4:00 PM CDT IMPRESSION: Stable abnormal examination demonstrating osteopenic values in the left proximal femur significantly above the average the patient's age-matched control without important change by comparison. NOF guidelines recommend consideration of FDA-approved medical therapies in patients with FRAX determined 10-year probabilities of hip/major osteoporosis-related fractures equal or greater than 3%/20% respectively. FRAX determined 10-year hip and major osteoporotic fracture risks are 1.9% and 15% respectively. Narrative 02/21/2023 4:00 PM CDT DEXA Evaluation of the Lumbar Spine and Left Proximal Femur Reason for Consultation: History of fracture as an adult for osteoporosis screening. Evaluation of bone mineral density. The following absorptiometry data were obtained. The quality of this examination is acceptable with regards to count density, processed images, data display and lack of important artifacts (including but not limited to motion and attenuation artifacts). Serial examination number 3 with comparison to prior exams of 2016 and 2019. L1-L4 BMD (g/cm2): 1.009 Adult T-score: -0.3 Adult Z-score: 2.0 Left Femoral Neck BMD (g/cm2): 0.734 Adult T-score: -1.0 Adult Z-score: 1.0 Left Total Hip BMD (g/cm2): 0.860 Adult T-score: -0.7 Adult Z-score: 1.0 Procedure Note David Cancino MD - 02/21/2023 DEXA Evaluation of the Lumbar Spine and Left Proximal Femur Reason for Consultation: History of fracture as an adult for osteoporosis screening. Evaluation of bone mineral density. The following absorptiometry data were obtained. The quality of this examination is acceptable with regards to count density, processed images, data display and lack of important artifacts (including but not limited to motion and attenuation artifacts). Serial examination number 3 with comparison to prior exams of 2016 and 2019. L1-L4 BMD (g/cm2): 1.009 Adult T-score: -0.3 Adult Z-score: 2.0 Left Femoral Neck BMD (g/cm2): 0.734 Adult T-score: -1.0 Adult Z-score: 1.0 Left Total Hip BMD (g/cm2): 0.860 Adult T-score: -0.7 Adult Z-score: 1.0 IMPRESSION: Stable abnormal examination demonstrating osteopenic values in the left proximal femur significantly above the average the patient's age-matched control without important change by comparison. NOF guidelines recommend consideration of FDA-approved medical therapies in patients with FRAX determined 10-year probabilities of hip/major osteoporosis-related fractures equal or greater than 3%/20% respectively. FRAX determined 10-year hip and major osteoporotic fracture risks are 1.9% and 15% respectively. Heike Rose NP DIAGNOSTIC IMAGING ORDERABLES Final Result * OCCULT BLOOD IMMUNOASSAY, COLORECTAL SCREEN (11/18/2016 3:54 PM CDT) OCCULT BLOOD, STOOL Negative Negative 11/22/2016 10:01 AM CDT [facility] Stool STOOL SPECIMEN / Unknown Collection / Unknown 11/18/2016 3:54 PM CDT 11/18/2016 8:48 PM CDT us Suzi Jade WATCHMAKING TEACHER BODY FLUIDS AND STOOLS Final Result [facility] CLIA# [id number] [address] [place] [address] from Last 3 Months or Most Recently Relevant to Health Maintenance Insurance MEDICARE PART A AND B [employer] [place] [id number] RX [employer] Medicare Part D Advance Directives For more information, please contact: [phone] * Full Code (Latest Code Status on File) Date Activated Date Inactivated Comments 09/03/2024 8:52 AM 09/03/2024 4:08 PM Care Teams Echocardiologist Relationship Specialty Start Date End Date Myriam Goodman DO [address] [place] [phone] PCP - General Family Practice 07/13/16
--- NOTE | 2025-05-23 19:26 | CTR_ITS ---
PROCEDURE INFORMATION: Exam: CT Head Without Contrast Exam date and time: 05/23/2025 8:04 PM Age: 74 years old Clinical indication: Injury or trauma; Blunt trauma (contusions or hematomas); Syncope and collapse; Syncope with fall striking posterior head on metal chair. TECHNIQUE: Imaging protocol: Computed tomography of the head without contrast. Radiation optimization: All CT scans at this facility use at least one of these dose optimization techniques: automated exposure control; mA and/or kV adjustment per patient size (includes targeted exams where dose is matched to clinical indication); or iterative reconstruction. COMPARISON: CT head wo con* [id number] 01/23/2024 4:36 PM RADIATION DOSE METRICS: Total DLP (mGy-cm): 1035.5 FINDINGS: Brain: No hemorrhage. Unremarkable white matter. No mass effect. The house-white matter differentiation is preserved. Cerebral ventricles: No ventriculomegaly. Paranasal sinuses: Visualized sinuses are unremarkable. No fluid levels. Mastoid air cells: Visualized mastoid air cells are well-aerated. Bones: Unremarkable. No acute fracture. Soft tissues: Small posterior scalp hematoma. CT/CT head wo con* [id number] IMPRESSION: No acute intracranial finding.
--- NOTE | 2025-05-23 19:26 | CTR_ITS ---
PROCEDURE INFORMATION: Exam: CT Cervical Spine Without Contrast Exam date and time: 05/23/2025 8:06 PM Age: 74 years old Clinical indication: Injury or trauma; Blunt trauma; Syncope with fall striking posterior head on metal chair. TECHNIQUE: Imaging protocol: Computed tomography of the cervical spine without contrast. Radiation optimization: All CT scans at this facility use at least one of these dose optimization techniques: automated exposure control; mA and/or kV adjustment per patient size (includes targeted exams where dose is matched to clinical indication); or iterative reconstruction. COMPARISON: MR cervical spin wo con* [id number] 04/20/2023 4:48 PM RADIATION DOSE METRICS: Total DLP (mGy-cm): 343.45 FINDINGS: Bones: No acute fracture. No spondylolisthesis. Multilevel chronic degenerative changes. No high-grade spinal canal stenosis. Lungs: Not included in field of view. Soft tissues: Unremarkable. CT/CT cervical spin wo con* [id number] IMPRESSION: No acute fracture of the cervical spine.
[2025-05-23 19:27] VITALS: BP 147/101; PULSE 82; RESP 16; TEMP 36.7; O2SAT 94; BMI 26.6
--- NOTE | 2025-05-23 19:45 | ECG_ITS ---
[facility] Date: 2025-05-23 Pat Name: Carmel Vega Department: Room: Gender: Female Door Patcher: : 1950 Requested By: Angela Salgado Order Number: [id number] Reading MD: DENY PORTILLO Measurements Intervals [place] Rate: 77 P: 40 NE: 172 QRS: -52 QRSD: 84 T: 58 QT: 404 QTc: 458 Interpretive Statements SINUS RHYTHM LEFT AXIS DEVIATION [QRS AXIS < -30] LOW QRS VOLTAGE IN PRECORDIAL LEADS [QRS DEFLECTION < 1.0 mV IN CHEST LEADS] PATTERN CONSISTENT WITH PULMONARY DISEASE Compared to ECG 01/05/2023 15:22:02 Left-axis deviation now present Low QRS voltage now present Left anterior fascicular block no longer present Myocardial infarct finding no longer present Electronically Signed On 05-24-2025 18:39:26 SCOREBOARD OPERATOR by DENY PORTILLO [email or web address]
--- NOTE | 2025-05-23 19:50 | W.ED.SYNCOPE ---
HPI - Syncope General: Chief Complaint: Syncope Stated Complaint: Passed out hit her head Time Seen by Provider: 05/23/25 19:26 History of Present Illness: Patient is a 74-year-old female with hypothyroid, CKD 4, presents to the ED due to syncope. She was at the kitchen refrigerator, she states she had some minimal lightheadedness and dizziness, then full syncope with fall. Daughter heard her fall. She was LOC times few seconds, then dazed for 2 minutes. No history of seizure. Remembers all the events before and after. No chest discomfort. No lightheadedness, dizziness. She states she has had 5 cups of water and 1 cup of coffee today. No recent cold or illness. Associated symptoms: Reports lightheadedness; Deny abdominal pain, chest pain, headache(s) or nausea Related Data Home Medications ?Medication ?Instructions ?Recorded ?Confirmed alprazolam 0.5 mg tablet (Xanax) 0.5 mg PO DAILY 11/13/19 01/27/25 guaifenesin 600 mg tablet, 600 mg PO Q12H PRN 11/13/19 01/27/25 extended release 12 hr (Mucinex) levothyroxine 25 mcg capsule 25 mcg PO DAILY 11/13/19 01/27/25 ondansetron HCl 4 mg tablet 4 mg PO Q8H PRN 11/13/19 01/27/25 (Zofran) sertraline 50 mg tablet (Zoloft) 50 mg PO DAILY 11/13/19 01/27/25 simvastatin 20 mg tablet 20 mg PO DAILY 11/13/19 01/27/25 fluticasone propionate 50 1 spray intranasal DAILY PRN 04/29/22 01/27/25 mcg/actuation nasal spray,suspension (Flonase Allergy Relief) acetaminophen 500 mg capsule 500 mg PO Q6H PRN 07/29/24 01/27/25 epinephrine 0.3 mg/0.3 mL 0.3 mg IM Q10M PRN 07/29/24 01/27/25 injection, auto-injector (EpiPen) gabapentin 300 mg capsule 300 mg PO DAILY 07/29/24 01/27/25 magnesium 200 mg tablet 200 mg PO DAILY PRN 07/29/24 01/27/25 sour johnson extract 1,000 mg mg PO 07/29/24 01/27/25 capsule (Tart Johnson Extract) triamcinolone acetonide 0.1 % 1 applic dental BID 07/29/24 01/27/25 dental paste famotidine 20 mg tablet (Acid 20 mg PO BID 01/27/25 01/27/25 Fire Control Assistant (famotidine)) potassium chloride 10 mEq 10 meq PO DAILY 01/27/25 01/27/25 capsule,extended release sodium bicarbonate 650 mg tablet See Rx Instructions PO BID 01/27/25 01/27/25 Previous Rx's ?Medication ?Instructions ?Recorded hinged elbow brace #1 ea 12/14/22 nitroglycerin 0.4 mg sublingual 0.4 mg sublingual Q5M PRN chest 01/27/25 tablet pain #30 tabs Allergies Allergy/AdvReac Type Severity Reaction Status Date / Time aspirin Allergy Unknown Unknown Verified 01/27/25 15:59 morphine Allergy Unknown Unknown Verified 01/27/25 15:59 Sulfa (Sulfonamide Allergy Unknown Unknown Verified 01/27/25 15:59 Antibiotics) acetaminophen (From Panlor AdvReac Mild ADR-Itching Verified 01/27/25 15:59 (hydrocodone-acetamin)) hydrocodone (From [facility]lor AdvReac Mild ADR-Itching Verified 01/27/25 15:59 (hydrocodone-acetamin)) Review of Systems General: Reports: 10 or more systems reviewed and unremarkable except in HPI and below Card: Reports: lightheadedness and other (Shaky upon standing); Denies: chest pain, palpitations, edema, swelling of feet/ankles, syncope, pre-syncope, dyspnea on exertion or leg pain with exertion Resp: Denies: dyspnea or productive cough GI: Denies: abdominal pain, nausea or vomiting Musc: Reports: extremity pain; Denies: extremity swelling Neuro: Reports: lack of coordination and dizziness; Denies: headache(s), numbness in extremities, weakness in extremities, sensory changes, difficulty walking, frequent falls, confusion, behavioral changes, Slurred speech present, difficulty communicating thoughts, seizure-like activity, involuntary movements or restless legs PFSH ED PFSH: Medical History (Updated 05/23/25 @ 20:57 by QUINN Croft) RBBB Hematuria Familial polyposis of colon Osteoporosis CKD (chronic kidney disease) Hyperlipidemia due to dietary fat intake Renal calculus, left Mixed stress and urge urinary incontinence Palpitation Surgical History S/P oophorectomy S/P foot surgery S/P ileostomy 12 surgeries S/P hysterectomy Family History Daughter , at 28 Colon cancer Sister , at 32 Colon cancer Mother , at age 46 Colon cancer Father , at age 59 Leukemia Son , Grandson at age 31 Overdose Other CAD (coronary artery disease) Cancer Familial polyposis Social History Smoking and tobacco/nicotine status: never used tobacco/nicotine Alcohol intake: never Adopted: No Caregiver/support person: No Lives independently: No Marital status: Current occupational status: retired Physical Exam Const: COMMON NORMALS: no acute distress, average body habitus, patient oriented x3, no limitations, healthy appearing, alert and well nourished HENMT: COMMON NORMALS: normocephalic, atraumatic, hearing grossly normal bilaterally, TM's normal bilaterally and Normal external nose present HEAD & SCALP: normocephalic and atraumatic FACE & SINUS: normal facial exam, sinuses nontender and face symmetric NOSE: Normal external nose present and Normal nares present TYMPANIC MEMBRANE: TM's normal bilaterally Neck/C-Spine: COMMON NORMALS: full ROM, no lymphadenopathy, supple and no meningeal signs Lymph: LYMPHATIC: no lymphadenopathy noted Resp: COMMON NORMALS: normal respiratory effort, No retractions, No use of accessory muscles and clear to auscultation bilaterally AUSCULTATION: clear to auscultation bilaterally Cardio: COMMON NORMALS: regular rate and regular rhythm RATE: regular rate RHYTHM: regular rhythm GI: COMMON NORMALS: Normal to inspection, nondistended, normoactive bowel sounds present, Soft to palpation, non-tender and No hepatosplenomegaly present PALPATION: Yes Soft to palpation and Yes No hepatosplenomegaly present : COMMON NORMALS: Yes no CVA tenderness and Yes normal external appearance BLADDER/KIDNEY EXAM: Yes no CVA tenderness Back/Pelvis: COMMON NORMALS: no CVA tenderness Neuro: COMMON NORMALS: patient oriented x3 SENSORIUM/ORIENTATION: Yes alert MENINGEAL SIGNS: Yes no meningeal signs Course Vital Signs: Vital signs: Vital Signs Temperature 98.1 F 05/23/25 19:27 Pulse Rate 76 05/23/25 21:04 Respiratory Rate 16 05/23/25 21:04 Blood Pressure 138/73 05/23/25 21:04 Pulse Oximetry 98 05/23/25 21:04 Oxygen Delivery Me thod Room Air 05/23/25 19:27 MDM - Syncope Medical Decision Making I stood patient up, and due to her exam, she had some shaky symptoms, however no tachycardia, and after 5 minutes, blood pressure was obtained to see if patient was orthostatic, which was stable at 144/102. This is consistent with previous blood pressure. On further workup, this is negative at this juncture. Creatinine is been 1.8 for some time. This is chronic. There is no acute findings. Nothing on monitoring, nothing on EKG. Patient states this has happened multiple times. She states she has already had a shelter monitor this year. I did advise another 1 given her full syncope. I also advise discussing follow-up with neurology. Patient states understanding. She will put in safety devices and plan in place. Medical Records I reviewed the patient's medical records. Lab Data I reviewed the patient's lab results. 05/23/25 19:37 05/23/25 19:37 Radiology Impressions Cervical Spine CT 05/23/25 19:26 IMPRESSION: No acute fracture of the cervical spine. Head CT 05/23/25 19:26 IMPRESSION: No acute intracranial finding. Laboratory Results WBC 6.58 10^3/uL (3.29-11.43) 05/23/25 19:37 RBC 4.50 10^6/uL (3.85-5.65) 05/23/25 19:37 Hgb 13.40 g/dL (11.27-16.99) 05/23/25 19:37 Hct 40.0 % (36-47) 05/23/25 19:37 MCV 88.9 fl (85-98) 05/23/25 19:37 MCH 29.8 pg (27-33) 05/23/25 19:37 MCHC 33.5 g/dL (30-55) 05/23/25 19:37 RDW 12.7 % (12.1-15.1) 05/23/25 19:37 Plt Count 161 10^3/cmm (157-399) 05/23/25 19:37 MPV 9.5 fL (7.4-10.4) 05/23/25 19:37 Neut % (Auto) 50.7 % 05/23/25 19:37 Lymph % (Auto) 37.1 % 05/23/25 19:37 [place] % (Auto) 8.5 % 05/23/25 19:37 Eos % (Auto) 2.7 % 05/23/25 19:37 Baso % (Auto) 0.8 % 05/23/25 19:37 Neut # (Auto) 3.34 10^3/uL (1.8-7.7) 05/23/25 19:37 Lymph # (Auto) 2.4 10^3/uL (0.8-4.8) 05/23/25 19:37 [place] # (Auto) 0.6 10^3/uL (0.2-0.9) 05/23/25 19:37 Eos # (Auto) 0.2 10^3/uL (0.0-0.8) 05/23/25 19:37 Baso # (Auto) 0.1 10^3/uL (0.0-0.1) 05/23/25 19:37 Nucleated RBC % (auto) 0 % 05/23/25 19:37 Nucleated RBCs # 0.0 /100WBC 05/23/25 19:37 Sodium 141 mmol/L (136-145) 05/23/25 19:37 Potassium 4.3 mmol/L (3.5-5.1) 05/23/25 19:37 Chloride 103 mmol/L (98-107) 05/23/25 19:37 Carbon Dioxide 23 mmol/L (22-29) 05/23/25 19:37 Anion Gap 19.3 (5-19) H 05/23/25 19:37 BUN 16 mg/dL (8-23) 05/23/25 19:37 Creatinine 1.8 mg/dL (0.5-0.9) H 05/23/25 19:37 GFR Calculation Not Reportable 05/23/25 19:37 Glucose 94 mg/dL (65-115) 05/23/25 19:37 Calculated Osmolality 293 mOsm/kg (285-295) 05/23/25 19:37 Calcium 9.5 mg/dL (8.5-10.5) 05/23/25 19:37 Total Bilirubin 0.3 mg/dL (0.15-1.2) 05/23/25 19:37 AST 27 U/L (0-32) 05/23/25 19:37 ALT 22 U/L (0-33) 05/23/25 19:37 Alkaline Phosphatase 61 U/L (35-105) 05/23/25 19:37 Total Protein 7.7 g/dL (6.6-8.7) 05/23/25 19:37 Albumin 4.1 g/dL (3.5-5.2) 05/23/25 19:37 Globulin 3.6 g/dL (1.3-4.6) 05/23/25 19:37 All radiology interpretation(s) finalized by discharge ED provider radiology interpretation(s): No acute findings Discharge Plan Discharge Patient Disposition: Home Clinical Impression: Vasovagal syncope Condition: Stable Prescriptions: No Action levothyroxine 25 mcg capsule 25 mcg PO DAILY ondansetron HCl [Zofran] 4 mg tablet 4 mg PO Q8H PRN sertraline [Zoloft] 50 mg tablet 50 mg PO DAILY alprazolam [Xanax] 0.5 mg tablet 0.5 mg PO DAILY guaifenesin [Mucinex] 600 mg tablet extended release 12hr 600 mg PO Q12H PRN simvastatin 20 mg tablet 20 mg PO DAILY fluticasone propionate [Flonase Allergy Relief] 50 mcg/actuation spray,suspension 1 spray INTRANASAL DAILY PRN Rx Instructions: administer into each nostril sodium bicarbonate 650 mg tablet See Rx Instructions PO BID Rx Instructions: 3 tablets in the am and 2 tablets in the PM orally twice a day; (DME) hinged elbow brace See Rx Instructions .Route .MEDSUPPLY Qty: 1 0RF Rx Instructions: As directed acetaminophen 500 mg capsule 500 mg PO Q6H PRN epinephrine [EpiPen] 0.3 mg/0.3 mL auto-injector 0.3 mg IM Q10M PRN Rx Instructions: for 2 doses gabapentin 300 mg capsule 300 mg PO DAILY magnesium 200 mg tablet 200 mg PO DAILY PRN Tart Johnson Extract 1,000 mg capsule PO triamcinolone acetonide 0.1 % paste 1 applic dental BID Rx Instructions: use after food and/or drink and/or oral hygiene potassium chloride 10 mEq capsule, extended release 10 meq PO DAILY famotidine [Acid Fire Control Assistant (famotidine)] 20 mg tablet 20 mg PO BID nitroglycerin 0.4 mg tablet, sublingual 0.4 mg sublingual Q5M PRN (Reason: chest pain) Qty: 30 3RF Rx Instructions: do not exceed 3 doses per episode Discharge Orders: Discharge ED (Routine); Ordered 05/23/25 Ordered By: Angela Salgado Referrals: Tamra Temple FNP [Primary Care Provider] Discharge Diet: Usual diet Discharge Activity: Resume usual activity and Use walker/crutches as instructed Patient Instructions: Syncope (ED), Patient Portal & [facility] Instructions Activity Restrictions/Additional Instructions: - I have placed an order for a monitor x 4 days. Case management has the order, and you will need to follow-up with Dr. Darling from cardiology on this as well - Return to ED if this occurs again - Take your blood pressure daily. Take a log of your doctor Thank you for choosing [facility] for your healthcare needs today. You have been screened and evaluated and felt safe for discharge. Health conditions do change or evolve sometimes and as such it is important that you follow up with your Primary Doctor to be re checked, 3-5 days is a general good time frame for follow up. You are always welcome to return to the ED for re assessment if your symptoms are worsening or you have new concerns Print Language: Nepali Coding Level of Care Code ED Buying Agent for Alena Parks
[2025-05-23 19:52] LABS: Hematocrit 40.0 % (36-47); Hemoglobin 13.40 g/dL (11.27-16.99); Mean Corpuscular HGB Conc 33.5 g/dL (30-55); Mean Corpuscular Hemoglobin 29.8 pg (27-33); Mean Corpuscular Volume 88.9 fl (85-98); Nucleated Red Blood Cells % 0 %; Platelet Count 161 10^3/cmm (157-399); Red Blood Count 4.50 10^6/uL (3.85-5.65); White Blood Count 6.58 10^3/uL (3.29-11.43)
[2025-05-23 20:09] LABS: Alanine Aminotransferase 22 U/L (0-33); Albumin Level 4.1 g/dL (3.5-5.2); Alkaline Phosphatase 61 U/L (35-105); Anion Gap 19.3 (5-19); Aspartate Amino Transferase 27 U/L (0-32); Blood Urea Nitrogen 16 mg/dL (8-23); Calcium 9.5 mg/dL (8.5-10.5); Carbon Dioxide 23 mmol/L (22-29); Chloride 103 mmol/L (98-107); Globulin 3.6 g/dL (1.3-4.6); Glucose 94 mg/dL (65-115); Osmolality Calculated 293 mOsm/kg (285-295); Potassium 4.3 mmol/L (3.5-5.1); Sodium 141 mmol/L (136-145); Total Protein 7.7 g/dL (6.6-8.7)
[2025-05-23 21:04] VITALS: BP 138/73; PULSE 76; RESP 16; O2SAT 98
--- NOTE | 2025-05-26 10:58 | DCPLANNER ---
messaged heart care for er f/u
== END 2025-05-23 21:14 | disposition home or self-care (01) ==
PROVIDERS: Emergency Provider Physician Assistant; PCP Nurse Practitioner Family
DX: R55 Syncope and collapse (principal); E78.5 Hyperlipidemia, unspecified; N18.9 Chronic kidney disease, unspecified
CPT/HCPCS: 36415; 70450; 72125; 80053; 85025; 93005; 99284

== ENCOUNTER → 2025-05-28 13:30 | Outpatient (BNVA) | payer MEDICARE, OTHER, SELFPAY | PROVIDERS: PCP Nurse Practitioner Family; Visit Provider Nurse Practitioner Family | DX: R55 Syncope and collapse (principal); H81.10 Benign paroxysmal vertigo, unspecified ear; I65.29 Occlusion and stenosis of unspecified carotid artery | CPT/HCPCS: 99214 ==